=== PATIENT | male | born 1975 | race Two or more races ===

== ENCOUNTER 2022-04-30 17:30 | Inpatient (IN) | payer OTHER, SELFPAY ==
--- NOTE | ~2022-04-30 | XR_ITS ---
EXAMINATION: XR CHEST CLINICAL INFORMATION: Chest pain. COMPARISON: None TECHNIQUE: Frontal view of the chest was obtained. FINDINGS: No significant abnormality is noted involving the heart, lungs, mediastinum, bony thorax or soft tissues. XR/XR chest 1V IMPRESSION: No acute cardiopulmonary process.
[2022-04-30 17:38] VITALS: BP 151/91; BP 188/120; PULSE 91; PULSE 97; RESP 12; TEMP 37.2; O2SAT 92; O2SAT 94; BMI 30.7
--- NOTE | 2022-04-30 17:43 | ECG_ITS ---
Test Reason : cp Blood Pressure : / mmHG Vent. Rate : 090 BPM Atrial Rate : 090 BPM P-R Int : 138 ms QRS Dur : 078 ms QT Int : 378 ms P-R-T Axes : 032 047 018 degrees QTc Int : 462 ms Normal sinus rhythm Normal ECG No previous ECGs available Referred By: Kerry Guillen Electronically Signed By:LAWANDA PATTERSON MD
--- NOTE | 2022-04-30 17:45 | ED_ITS ---
HPI - Chest Pain General Chief Complaint: Chest Pain Stated Complaint: drug use Time Seen by Provider: 04/30/22 17:43 Source: patient and EMS Mode of arrival: EMS Limitations: no limitations History of Present Illness HPI narrative: 46 y/o male with history of asthma, HIV with undetectable viral load, hx IVDA on methadone 135 mg per day who recently relapsed with IV fentanyl 3 days ago presents to the ER via EMS with reports of chest pain that started 3 hours ago after using. He states the pain is across his entire chest, it is constant and nonradiating. He is not short of breath. He is not nauseous or diaphoretic. He reports migraine headache as well. He told his symptoms to a member of his sober house who encouraged him to call 911 to be evaluated and be seen by psychiatrist. Patient is on methadone and has been taking it daily. He relapsed with IV fentanyl 3 days ago after stressful event with his family. He has been using 1- 2 bags a day. He wants to stop using. He reports he no longer wants to live but has no plan to harm himself. He denies trying to harm himself today. MD complaint: chest pain Pertinent past history: asthma and other (IVDA) Onset (ago): hour(s) (3) Timing of current episode: constant Prior episodes: No Onset: associated with drug use Pain location: substernal, left chest and right chest Pain radiation: none Severity: moderate Quality: sharp Relieving factors: nothing Exacerbating factors: nothing Associated symptoms: other (headache) Treatment prior to arrival: none Risk Factors Coronary artery disease risk factors: none Thoracic aortic dissection risk factors: none Related Data Allergies Allergy/AdvReac Type Severity Reaction Status Date / Time Penicillins Allergy Rash Verified 04/30/22 18:36 Review of Systems Review of Systems: Constitutional: No Fever, No Chills ENT/Mouth: No sore throat, No Rhinorrhea, No Swallowing Difficulty Eyes: No Eye Pain, No Swelling, No Redness Cardiovascular: + Chest Pain, No SOB, No Orthopnea, No Edema Respiratory: No Cough, No Sputum, No Wheezing, No dyspnea Gastrointestinal: No Nausea, No Vomiting, No Diarrhea, No abdominal Pain Genitourinary: No Dysuria, No Urinary Frequency, No Hematuria Musculoskeletal: No joint pain, No Myalgias Skin: No Skin Lesions, No rash Neuro: No Weakness, No Numbness, No Dizziness, + Headache Psych: + Anxiety/Panic, +Depression, +SI, No HI, No AH, NO VH Heme/Lymph: No Bruising, No Lymphadenopathy Endocrine: No Polyuria, [facility] Social History Social History Alcohol intake: former Patient Tobacco Use Status: Current everyday Tobacco user Substance Use Type: IV Drugs Advance Directives: No Advance Directives Information Provided: No Physical Exam Vital Signs: Vital Signs: Last Vital Signs Temp 99 F 04/30/22 17:38 Pulse 97 04/30/22 18:34 Resp 18 04/30/22 18:34 BP 151/91 H 04/30/22 17:38 Pulse Ox 92 04/30/22 17:38 BMI result Body Mass Index 30.7 Appearance: Alert. Oriented X3. No acute distress. Eyes: Pupils pinpoint equal, round and reactive to light. ENT: Pharynx normal. Neck: Normal inspection. Neck supple. CVS: Normal heart rate and rhythm. Pulses normal. Respiratory: No respiratory distress. Breath sounds normal. Abdomen: Soft and nontender. +BS x4 Skin: Skin warm and dry. Normal skin color. Normal skin turgor. No rashes. Extremities: No lower extremity edema. Left forearm with track de la cruz. Neuro: Oriented X 3. No motor deficit. No sensory deficit. Course Course Course Narrative: 36-year-old male with a history of IVDA, HIV, asthma presents to the ER with chest pain for the last 3 hours and headache after using IV fentanyl. He relapsed 3 days ago. He is awake and alert. No need for Narcan. He is sinus on the monitor with heart rate 90 beats per minute, EKG, chest x-ray and lab workup is pending. Most likely drug related but will rule out ACS. Reevaluation(s) Reevaluation #1: Troponin is 3.5. EKG is normal, without ischemic changes. U tox still pending. Patient's snoring & easily arousable. Given his chest pain is less than 6 hours will repeat at 21:30. Will have assistant women's rowing coach and crisis team evaluate him once he is medically cleared. MDM - Chest Pain Medical Records Data Attestation: I reviewed the patient's medical records. Lab Data Attestation: I reviewed the patient's lab results. Result diagrams: 04/30/22 18:26 04/30/22 18:26 Labs: Lab Results 04/30/22 04/30/22 04/30/22 Range/Units 18:26 18:26 18:26 WBC 7.8 (4.8-10.8) X10*3/uL RBC 4.44 L (4.60-5.80) X10*6/uL Hgb 13.8 L (14.0-18.0) g/dl Hct 41.6 L (42.0-52.0) % MCV 93.7 (80.0-98.0) fL MCH 31.1 (27.0-33.0) pg MCHC 33.2 (31.0-36.0) g/dl RDW 12.5 (11.0-16.0) % Plt Count 206 (160-400) X10*3/uL MPV 10.1 (9.4-12.4) fL Immature Gran % (Auto) 0.3 (0.0-0.4) % Neut % (Auto) 64.2 (45-73) % Lymph % (Auto) 19.1 L (20-40) % [place] % (Auto) 14.6 H (2-11) % Eos % (Auto) 1.4 (0-4) % Baso % (Auto) 0.4 (0-2) % Lymph # (Auto) 1.5 (1.2-4.9) X10*3/uL [place] # (Auto) 1.1 (0.1-1.2) X10*3/uL Eos # (Auto) 0.1 (0.0-0.4) X10*3/uL Baso # (Auto) 0.0 (0.0-0.2) X10*3/uL Abs Immat Gran (auto) 0.02 (0.00-0.03) X10*3/uL Absolute Neuts (auto) 5.0 (2.0-8.3) x10*3/uL Absolute Nucleated RBC 0.000 (0.0-0.012) X10*3/uL Nucleated RBC % (auto) 0.0 (0.0-0.2) /100WBC Sodium 138 (135-145) mmol/L Potassium 4.3 (3.3-5.1) mmol/L Chloride 98 (96-108) mmol/L Carbon Dioxide 30 H (22-29) mmol/L Anion Gap 14 (12-20) BUN 16 (9-16) mg/dL Creatinine 1.04 (0.5-1.4) mg/dL Estim Creat Clear Calc 109.0 Estimated GFR > 60 Random Glucose 95 (60-115) mg/dL Calcium 9.4 (8.4-10.2) mg/dL Magnesium 2.4 (1.6-2.6) mg/dL Total Bilirubin 0.4 (0.0-1.0) mg/dL Direct Bilirubin 0.2 (0.0-0.5) mg/dL AST 46 H (5-37) U/L ALT 39 (0-40) U/L Alkaline Phosphatase 95 (39-117) U/L Troponin I High Sens 3.5 (<3.5-35.0) ng/L Total Protein 7.9 (6.5-8.0) g/dL Albumin 4.1 (3.5-5.0) g/dL Ethyl Alcohol mg/dL COVID-19 (BOB) (Negative) COVID-19 Clin Com 04/30/22 04/30/22 Range/Units 18:26 18:26 WBC (4.8-10.8) X10*3/uL RBC (4.60-5.80) X10*6/uL Hgb (14.0-18.0) g/dl Hct (42.0-52.0) % MCV (80.0-98.0) fL MCH (27.0-33.0) pg MCHC (31.0-36.0) g/dl RDW (11.0-16.0) % Plt Count (160-400) X10*3/uL MPV (9.4-12.4) fL Immature Gran % (Auto) (0.0-0.4) % Neut % (Auto) (45-73) % Lymph % (Auto) (20-40) % [place] % (Auto) (2-11) % Eos % (Auto) (0-4) % Baso % (Auto) (0-2) % Lymph # (Auto) (1.2-4.9) X10*3/uL [place] # (Auto) (0.1-1.2) X10*3/uL Eos # (Auto) (0.0-0.4) X10*3/uL Baso # (Auto) (0.0-0.2) X10*3/uL Abs Immat Gran (auto) (0.00-0.03) X10*3/uL Absolute Neuts (auto) (2.0-8.3) x10*3/uL Absolute Nucleated RBC (0.0-0.012) X10*3/uL Nucleated RBC % (auto) (0.0-0.2) /100WBC Sodium (135-145) mmol/L Potassium (3.3-5.1) mmol/L Chloride (96-108) mmol/L Carbon Dioxide (22-29) mmol/L Anion Gap (12-20) BUN (9-16) mg/dL Creatinine (0.5-1.4) mg/dL Estim Creat Clear Calc Estimated GFR Random Glucose (60-115) mg/dL Calcium (8.4-10.2) mg/dL Magnesium (1.6-2.6) mg/dL Total Bilirubin (0.0-1.0) mg/dL Direct Bilirubin (0.0-0.5) mg/dL AST (5-37) U/L ALT (0-40) U/L Alkaline Phosphatase (39-117) U/L Troponin I High Sens (<3.5-35.0) ng/L Total Protein (6.5-8.0) g/dL Albumin (3.5-5.0) g/dL Ethyl Alcohol < 10 mg/dL COVID-19 (BOB) Negative (Negative) COVID-19 Clin Com See Note ECG Data ECG #1: Attestation: I personally reviewed and interpreted this ECG as follows: ECG interpretation date: 04/30/22 ECG interpretation time: 18:01 Prior ECG tracings: not available for review Interpretation: Normal sinus rhythm, ventricular rate 90 beats per minute, normal IN interval, no ST segment elevations or depressions. Discharge Plan Discharge Clinical Impression: Opioid use disorder, Depression Patient Disposition: Still a Patient
[2022-04-30 18:32] LABS: Basophils Percent Auto 0.4 % (0-2); Eosinophils Absolute Auto 0.1 X10*3/uL (0.0-0.4); Eosinophils Percent Auto 1.4 % (0-4); Hematocrit 41.6 % (42.0-52.0); Hemoglobin 13.8 g/dl (14.0-18.0); Imm Gran Abs Auto 0.02 X10*3/uL (0.00-0.03); Imm Gran Pct Auto 0.3 % (0.0-0.4); Lymphocytes Absolute Auto 1.5 X10*3/uL (1.2-4.9); Lymphocytes Percent Auto 19.1 % (20-40); MANUAL DIFF FLAG NO; Mean Corpuscular HGB Conc 33.2 g/dl (31.0-36.0); Mean Corpuscular Hemoglobin 31.1 pg (27.0-33.0); Mean Corpuscular Volume 93.7 fL (80.0-98.0); Mean Platelet Volume 10.1 fL (9.4-12.4); Monocytes Absolute Auto 1.1 X10*3/uL (0.1-1.2); Monocytes Percent Auto 14.6 % (2-11); Neutrophils Percent Auto 64.2 % (45-73); Platelet Count 206 X10*3/uL (160-400); Red Blood Count 4.44 X10*6/uL (4.60-5.80); Red Cell Distribution Width 12.5 % (11.0-16.0); White Blood Count 7.8 X10*3/uL (4.8-10.8)
[2022-04-30 18:34] VITALS: PULSE 97; RESP 18
[2022-04-30] MEDS: Ibuprofen 600 MG TABLET PO (18:36)
[2022-04-30 18:50] LABS: Ethanol < 10 mg/dL
[2022-04-30 18:51] LABS: COVID-19 Test Negative (Negative); IDNOW Serial# 16C4AD1C
[2022-04-30 18:53] LABS: Alanine Aminotransferase 39 U/L (0-40); Albumin Level 4.1 g/dL (3.5-5.0); Alkaline Phosphatase 95 U/L (39-117); Anion Gap 14 (12-20); Aspartate Amino Transferase 46 U/L (5-37); Bilirubin Direct 0.2 mg/dL (0.0-0.5); Bilirubin Total 0.4 mg/dL (0.0-1.0); Blood Urea Nitrogen 16 mg/dL (9-16); Calcium 9.4 mg/dL (8.4-10.2); Carbon Dioxide 30 mmol/L (22-29); Chloride 98 mmol/L (96-108); Estimated Glomerular Filt Rate > 60; Glucose Random 95 mg/dL (60-115); Magnesium 2.4 mg/dL (1.6-2.6); Potassium 4.3 mmol/L (3.3-5.1); Sodium 138 mmol/L (135-145); Total Protein 7.9 g/dL (6.5-8.0)
[2022-04-30 19:00] LABS: Troponin-I High Sensitivity 3.5 ng/L (<3.5-35.0)
[2022-04-30 22:16] LABS: Troponin-I High Sensitivity 3.6 ng/L (<3.5-35.0)
[2022-04-30 22:19] VITALS: BP 128/87; PULSE 72; RESP 12; TEMP 36.9; O2SAT 95
[2022-05-01] VITALS: BP 142/89; PULSE 65; RESP 12; TEMP 36.9; O2SAT 95
--- NOTE | 2022-05-01 00:02 | PC.NURSE ---
pt educated of need for urine sample, given urinal, advised to push call carpenter when he is able to provide sample
[2022-05-01 02:17] VITALS: BP 115/88; PULSE 65; RESP 12; O2SAT 96
[2022-05-01 05:25] VITALS: PULSE 65; RESP 14; O2SAT 96
[2022-05-01 06:03] VITALS: PULSE 68
--- NOTE | 2022-05-01 09:30 | PC.NURSE ---
patient evaluated by N, plan for inpatient bed search.
[2022-05-01 10:36] LABS: Appearance Urine HAZY; Color Urine YELLOW; Glucose Urine UA NEG (NEG); Leukocyte Esterase Urine NEG (NEG); Nitrite Urine NEG (NEG); Specific Gravity - Urine >= 1.030 (1.005-1.025); Urine Blood NEG (NEG); Urine Ketones NEG (NEG); Urine Protein TRACE MG/DL (NEG-TRACE)
[2022-05-01 10:55] LABS: Amphetamine Screen Urine Not Detected (Not Detect); Barbiturates, Urine Not Detected (Not Detect); Benzodiazepines Screen Urine Not Detected (Not Detect); Cannabinoid Screen Urine POSITIVE (Not Detect); Cocaine Screen Urine POSITIVE (Not Detect); Fentanyl, urine POSITIVE (Not Detect); Opiate Screen Urine POSITIVE (Not Detect); Phencyclidine Screen Urine Not Detected (Not Detect)
[2022-05-01] MEDS: methADONE HCl 20 MG/2 ML ORAL.CONC 135 MG PO (11:23)
[2022-05-01] MEDS: Sertraline HCL 50 MG TABLET 150 MG PO (16:17)
[2022-05-01] MEDS: Gabapentin 400 MG CAPSULE 800 MG PO ×2 (16:18→19:40)
[2022-05-01] MEDS: OLANZapine 2.5 MG TABLET PO (19:40)
[2022-05-01] MEDS: cloNIDine HCL 0.1 MG TABLET PO (19:40)
[2022-05-01] MEDS: levETIRAcetam 500 MG TABLET PO (19:40)
[2022-05-01] MEDS: Prazosin HCL 1 MG CAPSULE PO (19:40)
[2022-05-02 06:00] VITALS: BP 148/91; PULSE 75; RESP 18; TEMP 36.2; O2SAT 96
[2022-05-02] MEDS: methADONE HCl 20 MG/2 ML ORAL.CONC 135 MG PO (08:32)
[2022-05-02] MEDS: Gabapentin 400 MG CAPSULE 800 MG PO ×3 (08:39→20:51)
[2022-05-02] MEDS: buPROPion HCl XL 150 MG TAB.ER.24H PO (08:39)
[2022-05-02] MEDS: levETIRAcetam 500 MG TABLET PO ×2 (08:39→20:52)
[2022-05-02] MEDS: Prazosin HCL 1 MG CAPSULE 2 MG PO ×2 (08:40→20:52)
[2022-05-02] MEDS: OLANZapine 2.5 MG TABLET PO (08:40)
[2022-05-02] MEDS: Sertraline HCL 50 MG TABLET 150 MG PO (08:41)
[2022-05-02 09:19] LABS: Alanine Aminotransferase 31 U/L (0-40); Albumin Level 3.4 g/dL (3.5-5.0); Alkaline Phosphatase 81 U/L (39-117); Anion Gap 11 (12-20); Aspartate Amino Transferase 29 U/L (5-37); Bilirubin Total 0.3 mg/dL (0.0-1.0); Blood Urea Nitrogen 10 mg/dL (9-16); Calcium 8.4 mg/dL (8.4-10.2); Carbon Dioxide 32 mmol/L (22-29); Chloride 100 mmol/L (96-108); Cholesterol 160 mg/dL; Creatinine Clr Calc Pharmacy 149.2; Estimated Glomerular Filt Rate > 60; Glucose Fasting 89 mg/dL (60-99); HDL Cholesterol 49 mg/dL; LDL Cholesterol Calculated 94 mg/dl; Potassium 4.5 mmol/L (3.3-5.1); Sodium 138 mmol/L (135-145); Total Protein 6.6 g/dL (6.5-8.0); Triglycerides 89 mg/dL
--- NOTE | 2022-05-02 10:45 | HO.PSYADMNOT ---
HPI Date of Service: 05/02/22 Chief Complaint: depression Sources of Information: patient interviewed, chart reviewed and crisis/core team assessment reviewed HPI Subjective Notes: Torres Warning and Conditional Voluntary Healthcare Proxy: No Guardianship: No Medical Problems Affecting Mental Status: No Narrative: 46yo male, history of recurrent major depression with psychosis and opiate use disorder, currently on Methadone, presents with reports of an increase in depression with command auditory hallucinations telling him to suicide with a plan to hang himself. He reports an attempt to hang himself in 2020 and was found before he acted. He reports relapse over the past 72 hours and non-compliance with medications. Reports he is from the [facility] and had been on probation for substance use. When he relapsed, his front desk officer had him incarcerated for ~4 months, and talked with him about leaving [place] as he had too many connections threatening his sobriety. He left incarceration and [facility], [facility] recently and was placed after graduation in a sober home is [facility] where he has been for 30 days. Since his admission, he has found that his peers are selling drugs, using drugs and this helped to precipitate his relapse, along with an argument with his family in [place]. He reports he needs help finding a safer program for himself. Past Psychiatric History: IP: 2020, hx of approximately 12 admissions OP: [facility] Medical Evaluation Reviewed: Yes PMFSH Family History: Born and raised in [place]. To [facility] at age 23 One daughter Two brothers who are younger. Social History: [facility]. Recently completed [employer] program Substance History: Cannabis-age 14 on Fentanyl-using x 3 days. Believes he began using this substance around age 19. Trauma History: Affirms Diagnostics Vital Signs (24Hr): Vital Signs - 24 hr 05/02/22 06:00 Temperature 97.2 F Pulse Rate 75 Respiratory Rate 18 Blood Pressure 148/91 H Pulse Oximetry 96 BMI result Body Mass Index 30.7 Labs Results: 04/30/22 18:26 05/02/22 08:09 Labs: Laboratory Results - last 48 hr 04/30/22 04/30/22 04/30/22 18:26 18:26 18:26 WBC 7.8 RBC 4.44 L Hgb 13.8 L Hct 41.6 L MCV 93.7 MCH 31.1 MCHC 33.2 RDW 12.5 Plt Count 206 MPV 10.1 Immature Gran % (Auto) 0.3 Neut % (Auto) 64.2 Lymph % (Auto) 19.[address] % (Auto) 14.6 H Eos % (Auto) 1.4 Baso % (Auto) 0.4 Lymph # (Auto) 1.5 [place] # (Auto) 1.1 Eos # (Auto) 0.1 Baso # (Auto) 0.0 Abs Immat Gran (auto) 0.02 Absolute Neuts (auto) 5.0 Absolute Nucleated RBC 0.000 Nucleated RBC % (auto) 0.0 Sodium 138 Potassium 4.3 Chloride 98 Carbon Dioxide 30 H Anion Gap 14 BUN 16 Creatinine 1.04 Estim Creat Clear Calc 109.0 Estimated GFR > 60 Random Glucose 95 Fasting Glucose Calcium 9.4 Magnesium 2.4 Total Bilirubin 0.4 Direct Bilirubin 0.2 AST 46 H ALT 39 Alkaline Phosphatase 95 Troponin I High Sens 3.5 Total Protein 7.9 Albumin 4.1 Triglycerides Cholesterol LDL Cholesterol, Calc HDL Cholesterol Urine Color Urine Appearance Urine pH Ur Specific [place] Urine Protein Urine Glucose (UA) Urine Ketones Urine Blood Urine Nitrite Ur Leukocyte Esterase Urine Opiates Screen Urine Fentanyl Screen Ur Barbiturates Screen Ur Phencyclidine Scrn Ur Amphetamines Screen U Benzodiazepines Scrn Urine Cocaine Screen U Marijuana (THC) Screen Ethyl Alcohol COVID-19 (BOB) COVID-19 Clin Com 04/30/22 04/30/22 04/30/22 18:26 18:26 21:47 WBC RBC Hgb Hct MCV MCH MCHC RDW Plt Count MPV Immature Gran % (Auto) Neut % (Auto) Lymph % (Auto) [place] % (Auto) Eos % (Auto) Baso % (Auto) Lymph # (Auto) [place] # (Auto) Eos # (Auto) Baso # (Auto) Abs Immat Gran (auto) Absolute Neuts (auto) Absolute Nucleated RBC Nucleated RBC % (auto) Sodium Potassium Chloride Carbon Dioxide Anion Gap BUN Creatinine Estim Creat Clear Calc Estimated GFR Random Glucose Fasting Glucose Calcium Magnesium Total Bilirubin Direct Bilirubin AST ALT Alkaline Phosphatase Troponin I High Sens 3.6 Total Protein Albumin Triglycerides Cholesterol LDL Cholesterol, Calc HDL Cholesterol Urine Color Urine Appearance Urine pH Ur Specific [place] Urine Protein Urine Glucose (UA) Urine Ketones Urine Blood Urine Nitrite Ur Leukocyte Esterase Urine Opiates Screen Urine Fentanyl Screen Ur Barbiturates Screen Ur Phencyclidine Scrn Ur Amphetamines Screen U Benzodiazepines Scrn Urine Cocaine Screen U Marijuana (THC) Screen Ethyl Alcohol < 10 COVID-19 (BOB) Negative COVID-19 Clin Com See Note 05/01/22 05/01/22 05/02/22 10:25 10:25 08:09 WBC RBC Hgb Hct MCV MCH MCHC RDW Plt Count MPV Immature Gran % (Auto) Neut % (Auto) Lymph % (Auto) [place] % (Auto) Eos % (Auto) Baso % (Auto) Lymph # (Auto) [place] # (Auto) Eos # (Auto) Baso # (Auto) Abs Immat Gran (auto) Absolute Neuts (auto) Absolute Nucleated RBC Nucleated RBC % (auto) Sodium 138 Potassium 4.5 Chloride 100 Carbon Dioxide 32 H Anion Gap 11 L BUN 10 Creatinine 0.76 Estim Creat Clear Calc 149.2 Estimated GFR > 60 Random Glucose Fasting Glucose 89 Calcium 8.4 D Magnesium Total Bilirubin 0.3 Direct Bilirubin AST 29 ALT 31 Alkaline Phosphatase 81 Troponin I High Sens Total Protein 6.6 Albumin 3.4 L Triglycerides 89 Cholesterol 160 LDL Cholesterol, Calc 94 HDL Cholesterol 49 Urine Color YELLOW Urine Appearance HAZY Urine pH 6.0 Ur Specific [place] >= 1.030 H Urine Protein TRACE Urine Glucose (UA) NEG Urine Ketones NEG Urine Blood NEG Urine Nitrite NEG Ur Leukocyte Esterase NEG Urine Opiates Screen POSITIVE H Urine Fentanyl Screen POSITIVE H Ur Barbiturates Screen Not Detected Ur Phencyclidine Scrn Not Detected Ur Amphetamines Screen Not Detected U Benzodiazepines Scrn Not Detected Urine Cocaine Screen POSITIVE H U Marijuana (THC) Screen POSITIVE H Ethyl Alcohol COVID-19 (BOB) COVID-19 Clin Com Imaging Radiology Impressions: ITS Impressions Chest X-Ray 04/30/22 17:52 IMPRESSION: No acute cardiopulmonary process. Meds/Allergies Meds Home Medications Medication Instructions Recorded Confirmed Type bupropion HCl 150 mg 24 hr tablet, 1 tab PO QAM 05/01/22 05/01/22 History extended release (Wellbutrin XL) clonidine HCl 0.1 mg tablet 1 tab PO BID PRN 05/01/22 05/01/22 History gabapentin 800 mg tablet 1 tab PO TID 05/01/22 05/01/22 History levetiracetam 500 mg tablet 1 tab PO BID 05/01/22 05/01/22 History lumateperone 42 mg capsule 1 cap PO BEDTIME 05/01/22 05/01/22 History (Caplyta) methadone 10 mg/mL oral syringe 135 mg PO DAILY 05/01/22 05/01/22 History (FOR ORAL USE ONLY) olanzapine 5 mg tablet 2.5 mg PO BID 05/01/22 05/01/22 History prazosin 1 mg capsule 1 mg PO BEDTIME 05/01/22 05/01/22 History prazosin 2 mg capsule 1 cap PO BID 05/01/22 05/01/22 History sertraline 100 mg tablet (Zoloft) 1.5 tab PO DAILY 05/01/22 05/01/22 History sofosbuvir 400 mg-velpatasvir 100 1 tab PO DAILY 05/01/22 05/01/22 History mg tablet Allergies Allergies Allergy/AdvReac Type Severity Reaction Status Date / Time Penicillins Allergy Rash Verified 04/30/22 18:36 Mental Status Exam Mental Status Exam Patient Appearance: Appropriate Patient Orientation: Person, Place, Time and Situation Level of Consciousness: Alert Patient Behavior: Appropriate, Talkative, Cooperative and Good Eye Contact Mood Description: Depressed Affect Description: Flat Patient Cognition Impaired: No Ability to Follow Directions: Good Speech Pattern: Spontaneous Speech Memory Description: Intact Hallucinations: Auditory Perceptual Disturbances: Depersonalization and Derealization Thought Process: Distracted and Rumination Thought Content: positive for Suicidal Ideation Depressive Symptoms: Increased Anxiety, Difficulty Sleeping, Changes in Appetite and Thoughts of /Suicide Judgement: Fair Assessment & Plan Assessment & Plan (1) Severe recurrent major depression w/psychotic features, mood-congruent: Status: Acute Code(s): F33.3 - Major depressive disorder, recurrent, severe with psychotic symptoms (2) Opioid use disorder: Status: Acute Code(s): F11.90 - Opioid use, unspecified, uncomplicated Plan 46 yo male, hx of recurrent major depression with psychosis, opiate use disorder, currently on Methadone. Recent completion [facility] with [facility] program where he found that peers were selling drugs, using drugs and not living in a sober environment. This, along with an argument with his family in [place] precipitated a relapse, increase in command voices to hang himself. Plan: Medications reconciled with [facility]. Continue current regime TSH B12 Folate A1C Patient educated on: medication risk/benefits, substance abuse and therapeutic strategies Informed Consent: understands and further education needed Reason for continued inpatient stay Substantial Risk for: harm to self, inability to function and rapid decompensation
[2022-05-02] MEDS: cloNIDine HCL 0.1 MG TABLET PO (13:47)
[2022-05-02] MEDS: hydrOXYzine HCL 25 MG TABLET PO (13:48)
[2022-05-02 18:00] VITALS: BP 130/80; PULSE 95; RESP 18; TEMP 36.1; O2SAT 97
[2022-05-02] MEDS: OLANZapine 5 MG TABLET PO (20:52)
[2022-05-02] MEDS: Prazosin HCL 1 MG CAPSULE 3 MG PO (20:53)
[2022-05-03 06:00] VITALS: BP 140/75; PULSE 106; RESP 20; TEMP 36.9; O2SAT 97
[2022-05-03] MEDS: levETIRAcetam 500 MG TABLET PO ×2 (08:21→19:39)
[2022-05-03] MEDS: Sertraline HCL 50 MG TABLET 150 MG PO (08:21)
[2022-05-03] MEDS: Prazosin HCL 1 MG CAPSULE 2 MG PO ×2 (08:21→19:40)
[2022-05-03] MEDS: OLANZapine 5 MG TABLET PO ×2 (08:21→19:39)
[2022-05-03] MEDS: methADONE HCl 20 MG/2 ML ORAL.CONC 135 MG PO (08:21)
[2022-05-03] MEDS: buPROPion HCl XL 150 MG TAB.ER.24H PO ×2 (08:21→12:57)
[2022-05-03] MEDS: Gabapentin 400 MG CAPSULE 800 MG PO ×3 (08:21→19:39)
[2022-05-03] MEDS: Multivitamin TABLET 1 TAB PO (08:22)
[2022-05-03 08:31] LABS: Estimated Average Glucose 105 mg/dL; Hemoglobin A1c % 5.3 %
[2022-05-03 08:52] LABS: Thyroid Stimulating Hormone 1.48 uIU/mL (0.32-4.0)
[2022-05-03 10:12] LABS: Folate 10.6 ng/mL (> or = 4.0); Vitamin B12 458 pg/mL (200-900)
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
[2022-05-03 18:15] VITALS: BP 141/83; PULSE 83; TEMP 36.9; O2SAT 95
[2022-05-03] MEDS: risperiDONE 0.5 MG TABLET PO (19:39)
[2022-05-03] MEDS: Prazosin HCL 1 MG CAPSULE 4 MG PO (19:39)
[2022-05-04] MEDS: buPROPion HCl XL 150 MG TAB.ER.24H PO ×2 (08:02→12:02)
[2022-05-04] MEDS: Sertraline HCL 50 MG TABLET 150 MG PO (08:02)
[2022-05-04] MEDS: Bictegrav/Emtricit/Tenofov Ala TABLET 1 TAB PO (08:02)
[2022-05-04] MEDS: Prazosin HCL 1 MG CAPSULE 2 MG PO ×2 (08:03→20:00)
[2022-05-04] MEDS: Multivitamin TABLET 1 TAB PO (08:03)
[2022-05-04] MEDS: OLANZapine 5 MG TABLET PO (08:03)
[2022-05-04] MEDS: levETIRAcetam 500 MG TABLET PO ×2 (08:03→19:59)
[2022-05-04] MEDS: Gabapentin 400 MG CAPSULE 800 MG PO ×3 (08:03→20:00)
[2022-05-04] MEDS: methADONE HCl 20 MG/2 ML ORAL.CONC 135 MG PO (08:03)
[2022-05-04 08:06] VITALS: BP 133/87; PULSE 88; RESP 18; TEMP 36.4; O2SAT 97
[2022-05-04] MEDS: Acetaminophen 325 MG TABLET 650 MG PO (12:02)
[2022-05-04] MEDS: cloNIDine HCL 0.1 MG TABLET PO (14:12)
--- NOTE | 2022-05-04 17:08 | P.PNPSI_ITS ---
Subjective Subjective Date of Service: 05/04/22 Reason For Visit: depression Subjective Notes: Conditional Voluntary Healthcare Proxy: No Guardianship: No Medical Problems Affecting Mental Status: No Interim History: Reports an increase in voices and ongoing poor sleep as he has a room-mate who has a one to one and there is not a quiet night environment. Discussion of efficacy of recent increase of prazosin and addition of HS Risperdal. He reports not much assist with these interventions. Discussed titration of Olanzapine. Medication Compliance: Yes Side effects from medications: No Attending Groups: Intermittent Review of Systems Acute medical concerns: No Medical Review of Systems: unchanged Review of Systems Psychiatric: Reports abnormal sleep pattern (vivid nightmares) and Reports suicidal ideation (denies) Mental Status Exam Mental Status Exam Patient Appearance: Appropriate Patient Orientation: Person, Place, Time and Situation Level of Consciousness: Alert Patient Behavior: Appropriate, Talkative, Cooperative and Good Eye Contact Mood Description: Depressed Affect Description: Flat Patient Cognition Impaired: No Ability to Follow Directions: Good Speech Pattern: Spontaneous Speech Memory Description: Intact Hallucinations: Auditory Perceptual Disturbances: Depersonalization and Derealization Thought Process: Distracted and Rumination Thought Content: positive for Suicidal Ideation Depressive Symptoms: Increased Anxiety, Difficulty Sleeping, Changes in Appetite and Thoughts of /Suicide Judgement: Fair Diagnostics Vital Signs (24Hr): Vital Signs - 24 hr 05/03/22 18:15 05/04/22 08:06 Temperature 98.4 F 97.6 F Pulse Rate 83 88 Respiratory Rate 18 Blood Pressure 141/83 H 133/87 Pulse Oximetry 95 97 BMI result Body Mass Index 30.7 Labs Results: 04/30/22 18:26 05/02/22 08:09 Labs: Laboratory Results - last 48 hr 05/03/22 05/03/22 05/03/22 08:00 08:00 08:00 Estimat Average Glucose 105 Hemoglobin A1c % 5.3 Vitamin B12 458 Folate 10.6 TSH 1.48 Imaging Radiology Impressions: ITS Impressions Chest X-Ray 04/30/22 17:52 IMPRESSION: No acute cardiopulmonary process. Medications Medications Current Medications Acetaminophen (Acetaminophen 325 Mg Tablet) 650 mg PO Q6H PRN PRN Reason: Headache/Pain Mild Scale (1-3) Last Admin: 05/04/22 12:02 Dose: 650 mg Documented by: Al Hydroxide/Mg Hydroxide (Magnesium Hydrox/Alum Hydrox 30 Ml Oral.Susp) 30 ml PO Q6H PRN PRN Reason: Heartburn/Nausea Bictegravir/Emtricitabine/Tenofovir (Bictegrav/Emtricit/Tenofov Ala Tablet) 1 tab PO DAILY [facility] Last Admin: 05/04/22 08:02 Dose: 1 tab Documented by: Bupropion HCl (Bupropion Hcl Xl 150 Mg Tab.Er.24h) 150 mg PO 0900,1300 [facility] Last Admin: 05/04/22 12:02 Dose: 150 mg Documented by: Clonidine HCl (Clonidine Hcl 0.1 Mg Tablet) 0.1 mg PO BID PRN; Protocol PRN Reason: anxiety Last Admin: 05/04/22 14:12 Dose: 0.1 mg Documented by: Gabapentin (Gabapentin 400 Mg Capsule) 800 mg PO TID [facility] Last Admin: 05/04/22 14:09 Dose: 800 mg Documented by: Hydroxyzine HCl (Hydroxyzine Hcl 25 Mg Tablet) 25 mg PO BEDTIME PRN PRN Reason: Anxiety Last Admin: 05/02/22 13:48 Dose: 25 mg Documented by: Levetiracetam (Levetiracetam 500 Mg Tablet) 500 mg PO BID [facility] Last Admin: 05/04/22 08:03 Dose: 500 mg Documented by: Magnesium Hydroxide (Milk Of Magnesia 30 Ml Oral.Susp) 30 ml PO DAILY PRN PRN Reason: Constipation Methadone HCl (Methadone Hcl 20 Mg/2 Ml Oral.Conc) 135 mg PO DAILY [facility] Last Admin: 05/04/22 08:03 Dose: 135 mg Documented by: Multivitamins/Vitamin C (Multivitamin Tablet) 1 tab PO DAILY [facility] Last Admin: 05/04/22 08:03 Dose: 1 tab Documented by: Nicotine (Nicotine 21 Mg Patch.Td24) 21 mg TRANSDERMA DAILY [facility] Last Admin: 05/04/22 08:05 Dose: Not Given Documented by: Non-Formulary Medication (Lumateperone [Caplyta]) 1 cap PO BEDTIME [facility] Non-Formulary Medication (Sofosbuvir-Velpatasvir) 1 tab PO DAILY [facility] Olanzapine (Olanzapine 5 Mg Tablet) 5 mg PO DAILY [facility] Olanzapine (Olanzapine 10 Mg Tablet) 10 mg PO BEDTIME [facility] Prazosin HCl (Prazosin Hcl 1 Mg Capsule) 2 mg PO BID [facility]; Protocol Last Admin: 05/04/22 08:03 Dose: 2 mg Documented by: Prazosin HCl (Prazosin Hcl 1 Mg Capsule) 4 mg PO BEDTIME [facility]; Protocol Last Admin: 05/03/22 19:39 Dose: 4 mg Documented by: Sertraline HCl (Sertraline Hcl 50 Mg Tablet) 150 mg PO DAILY [facility] Last Admin: 05/04/22 08:02 Dose: 150 mg Documented by: Sumatriptan Succinate (Sumatriptan Succinate 50 Mg Tablet) 50 mg PO DAILY MRX1 PRN PRN Reason: Migraine Headache Trazodone HCl (Trazodone Hcl 50 Mg Tablet) 50 mg PO BEDTIME PRN PRN Reason: Insomnia Allergies Allergies Allergy/AdvReac Type Severity Reaction Status Date / Time Penicillins Allergy Rash Verified 04/30/22 18:36 Assessment & Plan Assessment & Plan (1) Severe recurrent major depression w/psychotic features, mood-congruent: Status: Acute Code(s): F33.3 - Major depressive disorder, recurrent, severe with psychotic symptoms (2) Opioid use disorder: Status: Acute Code(s): F11.90 - Opioid use, unspecified, uncomplicated Plan 46 yo male, hx of recurrent major depression with psychosis, opiate use disorder, currently on Methadone. Recent completion of [facility] program with transfer to [facility] sober living program where he found that peers were selling drugs, using drugs and not living in a sober environment. This, along with an argument with his family in [place] precipitated a relapse, increase in command voices to hang himself. Plan: Medications reconciled with [facility]. Continue current regime TSH B12 Folate A1C 05/03/22: Increase HS Prazosin to 4 mg Risperdal 0.5 mg HS Discharge planning. 05/04/22 Discontinue Risperdal Increase Olanzapine to 10 mg at HS I spent minutes with the patient and/or on the patient floor today, greater than?50% of which was spent counseling/coordinating care. Patient educated on: medication risk/benefits Informed Consent: understands and further education needed Reason for contiued inpatient stay Substantial Risk for: harm to self, inability to function and rapid decompensation
[2022-05-04 19:55] VITALS: BP 130/67; PULSE 74; TEMP 36.9; O2SAT 97
[2022-05-04] MEDS: OLANZapine 10 MG TABLET PO (19:59)
[2022-05-04] MEDS: Prazosin HCL 1 MG CAPSULE 4 MG PO (20:00)
[2022-05-05] MEDS: Multivitamin TABLET 1 TAB PO (08:09)
[2022-05-05] MEDS: Prazosin HCL 1 MG CAPSULE 2 MG PO ×2 (08:09→19:52)
[2022-05-05] MEDS: OLANZapine 5 MG TABLET PO (08:09)
[2022-05-05] MEDS: methADONE HCl 20 MG/2 ML ORAL.CONC 135 MG PO (08:09)
[2022-05-05] MEDS: Sertraline HCL 50 MG TABLET 150 MG PO (08:09)
[2022-05-05] MEDS: buPROPion HCl XL 150 MG TAB.ER.24H PO ×2 (08:09→12:04)
[2022-05-05] MEDS: Bictegrav/Emtricit/Tenofov Ala TABLET 1 TAB PO (08:09)
[2022-05-05] MEDS: levETIRAcetam 500 MG TABLET PO ×2 (08:09→19:52)
[2022-05-05] MEDS: Gabapentin 400 MG CAPSULE 800 MG PO ×3 (08:09→19:53)
[2022-05-05 08:12] VITALS: BP 146/84; PULSE 96; RESP 18; TEMP 36.8; O2SAT 97
--- NOTE | 2022-05-05 13:39 | MHC.RECOVSUP ---
? Reason for consult:Recovery Support o Current location:[facility] o Identified substance use concern:Heroine - Seeking ATS (detox) - Support ? Intervention: o MAT started or to be started o Community resources provided o Harm reduction discussion ? Plan: o Bed search in progress to o Patient to follow up with [facility] after discharge ? Additional information:Patient seeking a acid recovery operator, referred patient to Laurie Bedoya the acid recovery [email or web address]
[2022-05-05 18:00] VITALS: BP 140/80; PULSE 85; RESP 14; TEMP 36.6
--- NOTE | 2022-05-05 18:03 | P.PNPSI_ITS ---
Subjective Subjective Date of Service: 05/05/22 Reason For Visit: depression Subjective Notes: Conditional Voluntary Healthcare Proxy: No Guardianship: No Medical Problems Affecting Mental Status: No Interim History: Connor continues to report voices, anxiety, depression. Discussed and reviewed regime. Continue Olanzapine titration. Medication Compliance: Yes Side effects from medications: No Attending Groups: Intermittent Review of Systems Acute medical concerns: No Medical Review of Systems: unchanged Review of Systems Psychiatric: Reports abnormal sleep pattern (vivid nightmares), Reports anxiety, Reports depression, Reports auditory hallucinations and Reports suicidal ideatio n (denies) Mental Status Exam Mental Status Exam Patient Appearance: Appropriate Patient Orientation: Person, Place, Time and Situation Level of Consciousness: Alert Patient Behavior: Appropriate, Talkative, Cooperative and Good Eye Contact Mood Description: Depressed and Anxious Affect Description: Flat Patient Cognition Impaired: No Ability to Follow Directions: Good Speech Pattern: Spontaneous Speech Memory Description: Intact Hallucinations: Auditory Delusions: Paranoid Ideation Perceptual Disturbances: Depersonalization and Derealization Thought Process: Distracted and Rumination Thought Content: positive for Suicidal Ideation (reports feeling safe on the unit today) Depressive Symptoms: Increased Anxiety, Difficulty Sleeping, Changes in Appetite and Thoughts of /Suicide Judgement: Fair Diagnostics Vital Signs (24Hr): Vital Signs - 24 hr 05/04/22 19:55 05/05/22 08:12 Temperature 98.5 F 98.2 F Pulse Rate 74 96 Respiratory Rate 18 Blood Pressure 130/67 146/84 H Pulse Oximetry 97 97 Oxygen Delivery Method Room Air BMI result Body Mass Index 30.7 Labs Results: 04/30/22 18:26 05/02/22 08:09 Imaging Radiology Impressions: ITS Impressions Chest X-Ray 04/30/22 17:52 IMPRESSION: No acute cardiopulmonary process. Medications Medications Current Medications Acetaminophen (Acetaminophen 325 Mg Tablet) 650 mg PO Q6H PRN PRN Reason: Headache/Pain Mild Scale (1-3) Last Admin: 05/04/22 12:02 Dose: 650 mg Al Hydroxide/Mg Hydroxide (Magnesium Hydrox/Alum Hydrox 30 Ml Oral.Susp) 30 ml PO Q6H PRN PRN Reason: Heartburn/Nausea Bictegravir/Emtricitabine/Tenofovir (Bictegrav/Emtricit/Tenofov Ala Tablet) 1 tab PO DAILY [facility] Last Admin: 05/05/22 08:09 Dose: 1 tab Bupropion HCl (Bupropion Hcl Xl 150 Mg Tab.Er.24h) 150 mg PO 0900,1300 [facility] Last Admin: 05/05/22 12:04 Dose: 150 mg Clonidine HCl (Clonidine Hcl 0.1 Mg Tablet) 0.1 mg PO BID PRN; Protocol PRN Reason: anxiety Last Admin: 05/04/22 14:12 Dose: 0.1 mg Gabapentin (Gabapentin 400 Mg Capsule) 800 mg PO TID [facility] Last Admin: 05/05/22 14:45 Dose: 800 mg Hydroxyzine HCl (Hydroxyzine Hcl 25 Mg Tablet) 25 mg PO BEDTIME PRN PRN Reason: Anxiety Last Admin: 05/02/22 13:48 Dose: 25 mg Levetiracetam (Levetiracetam 500 Mg Tablet) 500 mg PO BID [facility] Last Admin: 05/05/22 08:09 Dose: 500 mg Magnesium Hydroxide (Milk Of Magnesia 30 Ml Oral.Susp) 30 ml PO DAILY PRN PRN Reason: Constipation Methadone HCl (Methadone Hcl 20 Mg/2 Ml Oral.Conc) 135 mg PO DAILY [facility] Last Admin: 05/05/22 08:09 Dose: 135 mg Multivitamins/Vitamin C (Multivitamin Tablet) 1 tab PO DAILY [facility] Last Admin: 05/05/22 08:09 Dose: 1 tab Nicotine (Nicotine 21 Mg Patch.Td24) 21 mg TRANSDERMA DAILY [facility] Last Admin: 05/05/22 08:11 Dose: Not Given Non-Formulary Medication (Lumateperone [Caplyta]) 1 cap PO BEDTIME [facility] Non-Formulary Medication (Sofosbuvir-Velpatasvir) 1 tab PO DAILY [facility] Olanzapine (Olanzapine 5 Mg Tablet) 5 mg PO DAILY [facility] Last Admin: 05/05/22 08:09 Dose: 5 mg Olanzapine (Olanzapine 10 Mg Tablet) 10 mg PO BEDTIME [facility] Last Admin: 05/04/22 19:59 Dose: 10 mg Prazosin HCl (Prazosin Hcl 1 Mg Capsule) 2 mg PO BID [facility]; Protocol Last Admin: 05/05/22 08:09 Dose: 2 mg Prazosin HCl (Prazosin Hcl 1 Mg Capsule) 4 mg PO BEDTIME [facility]; Protocol Last Admin: 05/04/22 20:00 Dose: 4 mg Sertraline HCl (Sertraline Hcl 50 Mg Tablet) 150 mg PO DAILY [facility] Last Admin: 05/05/22 08:09 Dose: 150 mg Sumatriptan Succinate (Sumatriptan Succinate 50 Mg Tablet) 50 mg PO DAILY MRX1 PRN PRN Reason: Migraine Headache Trazodone HCl (Trazodone Hcl 50 Mg Tablet) 50 mg PO BEDTIME PRN PRN Reason: Insomnia Allergies Allergies Allergy/AdvReac Type Severity Reaction Status Date / Time Penicillins Allergy Rash Verified 04/30/22 18:36 Assessment & Plan Assessment & Plan (1) Severe recurrent major depression w/psychotic features, mood-congruent: Status: Acute Code(s): F33.3 - Major depressive disorder, recurrent, severe with psychotic symptoms (2) Opioid use disorder: Status: Acute Code(s): F11.90 - Opioid use, unspecified, uncomplicated Plan 46 yo male, hx of recurrent major depression with psychosis, opiate use disorder, currently on Methadone. Recent completion of [place] program with transfer to [facility] sober living program where he found that peers were selling drugs, using drugs and not living in a sober environment. This, along with an argument with his family in [place] precipitated a relapse, increase in command voices to hang himself. Plan: Medications reconciled with [facility]. Continue current regime TSH B12 Folate A1C 05/03/22: Increase HS Prazosin to 4 mg Risperdal 0.5 mg HS Discharge planning. 05/04/22 Discontinue Risperdal Increase Olanzapine to 10 mg at HS 05/05/22 Increase HS Olanzapine to 15 mg Topiramate 25 mg daily-mood and headache mgt. I spent minutes with the patient and/or on the patient floor today, greater than?50% of which was spent counseling/coordinating care. Patient educated on: medication risk/benefits Informed Consent: understands and further education needed Reason for contiued inpatient stay Substantial Risk for: harm to self, inability to function and rapid decompensat ion
[2022-05-05] MEDS: Prazosin HCL 1 MG CAPSULE 4 MG PO (19:52)
[2022-05-05] MEDS: OLANZapine 7.5 MG TABLET 15 MG PO (19:52)
--- NOTE | 2022-05-05 23:58 | PC.NURSE ---
Patient did c/o not being able to sleep due to his roommate having a patient observer. Patient was given ear plugs. It was also noted patient was asking different staff for packets of jelly and had probably consumed 15 packets before being cut off.
[2022-05-06] MEDS: methADONE HCl 20 MG/2 ML ORAL.CONC 135 MG PO (08:12)
[2022-05-06] MEDS: Sertraline HCL 50 MG TABLET 150 MG PO (08:13)
[2022-05-06] MEDS: levETIRAcetam 500 MG TABLET PO ×2 (08:13→19:54)
[2022-05-06] MEDS: buPROPion HCl XL 150 MG TAB.ER.24H PO ×2 (08:13→12:12)
[2022-05-06] MEDS: OLANZapine 5 MG TABLET PO (08:13)
[2022-05-06] MEDS: Topiramate 25 MG TABLET PO (08:13)
[2022-05-06] MEDS: Gabapentin 400 MG CAPSULE 800 MG PO ×3 (08:13→19:53)
[2022-05-06] MEDS: Multivitamin TABLET 1 TAB PO (08:13)
[2022-05-06] MEDS: Bictegrav/Emtricit/Tenofov Ala TABLET 1 TAB PO (08:13)
[2022-05-06] MEDS: Prazosin HCL 1 MG CAPSULE 2 MG PO ×2 (08:13→19:54)
[2022-05-06 08:16] VITALS: BP 137/91; PULSE 83; RESP 18; TEMP 36.3; O2SAT 96; BMI 35.4
--- NOTE | 2022-05-06 14:44 | HO.PSYCHPN ---
Subjective Subjective Date of Service: 05/06/22 Reason For Visit: depression Subjective Notes: Conditional Voluntary Healthcare Proxy: No Guardianship: No Medical Problems Affecting Mental Status: No Interim History: Reports depressed mood/insomnia due to room-mate's need for one to one special-describes difficulty with others watching him sleep due to previous traumatic experience. Discussed potential for [facility] referral which he is hopeful for. Overall reports sadness and internal restless given lack of clear plan for housing upon discharge. Discussed a room change with team-they will work on this. Medication Compliance: Yes Side effects from medications: No Attending Groups: Intermittent Review of Systems Acute medical concerns: No Medical Review of Systems: unchanged Review of Systems Psychiatric: Reports abnormal sleep pattern, Reports anxiety, Reports depression and Reports hopelessness Mental Status Exam Mental Status Exam Patient Appearance: Appropriate Patient Orientation: Person, Place, Time and Situation Level of Consciousness: Alert Patient Behavior: Appropriate, Talkative, Cooperative and Good Eye Contact Mood Description: Depressed and Anxious Affect Description: Flat Patient Cognition Impaired: No Ability to Follow Directions: Good Speech Pattern: Appropriate and Spontaneous Speech Memory Description: Intact Hallucinations: Auditory Delusions: Paranoid Ideation Perceptual Disturbances: Depersonalization and Derealization Thought Process: Distracted and Rumination Thought Content: positive for Perseveration (worry) and positive for Suicidal Ideation (reports feeling safe on the unit today) Depressive Symptoms: Increased Anxiety, Difficulty Sleeping and Thoughts of /Suicide (denies, reports he is feeling safe on the unit.) Abnormal Motor Activity Signs and Symptoms: Restlessness Judgement: Fair Diagnostics Vital Signs (24Hr): Vital Signs - 24 hr 05/05/22 18:00 05/06/22 08:16 Temperature 97.9 F 97.4 F Pulse Rate 85 83 Respiratory Rate 14 18 Blood Pressure 140/80 H 137/91 H Pulse Oximetry 96 Oxygen Delivery Method Room Air BMI result Body Mass Index 35.4 Labs Results: 04/30/22 18:26 05/02/22 08:09 Imaging Radiology Impressions: ITS Impressions Chest X-Ray 04/30/22 17:52 IMPRESSION: No acute cardiopulmonary process. Medications Medications Current Medications Acetaminophen (Acetaminophen 325 Mg Tablet) 650 mg PO Q6H PRN PRN Reason: Headache/Pain Mild Scale (1-3) Last Admin: 05/04/22 12:02 Dose: 650 mg Al Hydroxide/Mg Hydroxide (Magnesium Hydrox/Alum Hydrox 30 Ml Oral.Susp) 30 ml PO Q6H PRN PRN Reason: Heartburn/Nausea Bictegravir/Emtricitabine/Tenofovir (Bictegrav/Emtricit/Tenofov Ala Tablet) 1 tab PO DAILY [facility] Last Admin: 05/06/22 08:13 Dose: 1 tab Bupropion HCl (Bupropion Hcl Xl 150 Mg Tab.Er.24h) 150 mg PO 0900,1300 [facility] Last Admin: 05/06/22 12:12 Dose: 150 mg Clonidine HCl (Clonidine Hcl 0.1 Mg Tablet) 0.1 mg PO BID PRN; Protocol PRN Reason: anxiety Last Admin: 05/04/22 14:12 Dose: 0.1 mg Gabapentin (Gabapentin 400 Mg Capsule) 800 mg PO TID [facility] Last Admin: 05/06/22 14:24 Dose: 800 mg Hydroxyzine HCl (Hydroxyzine Hcl 25 Mg Tablet) 25 mg PO BEDTIME PRN PRN Reason: Anxiety Last Admin: 05/02/22 13:48 Dose: 25 mg Levetiracetam (Levetiracetam 500 Mg Tablet) 500 mg PO BID [facility] Last Admin: 05/06/22 08:13 Dose: 500 mg Magnesium Hydroxide (Milk Of Magnesia 30 Ml Oral.Susp) 30 ml PO DAILY PRN PRN Reason: Constipation Methadone HCl (Methadone Hcl 20 Mg/2 Ml Oral.Conc) 135 mg PO DAILY [facility] Last Admin: 05/06/22 08:12 Dose: 135 mg Multivitamins/Vitamin C (Multivitamin Tablet) 1 tab PO DAILY [facility] Last Admin: 05/06/22 08:13 Dose: 1 tab Nicotine (Nicotine 21 Mg Patch.Td24) 21 mg TRANSDERMA DAILY [facility] Last Admin: 05/06/22 08:15 Dose: Not Given Non-Formulary Medication (Lumateperone [Caplyta]) 1 cap PO BEDTIME [facility] Non-Formulary Medication (Sofosbuvir-Velpatasvir) 1 tab PO DAILY [facility] Olanzapine (Olanzapine 5 Mg Tablet) 5 mg PO DAILY [facility] Last Admin: 05/06/22 08:13 Dose: 5 mg Olanzapine (Olanzapine 7.5 Mg Tablet) 15 mg PO BEDTIME [facility] Last Admin: 05/05/22 19:52 Dose: 15 mg Prazosin HCl (Prazosin Hcl 1 Mg Capsule) 2 mg PO BID [facility]; Protocol Last Admin: 05/06/22 08:13 Dose: 2 mg Prazosin HCl (Prazosin Hcl 1 Mg Capsule) 4 mg PO BEDTIME [facility]; Protocol Last Admin: 05/05/22 19:52 Dose: 4 mg Sertraline HCl (Sertraline Hcl 50 Mg Tablet) 150 mg PO DAILY [facility] Last Admin: 05/06/22 08:13 Dose: 150 mg Sumatriptan Succinate (Sumatriptan Succinate 50 Mg Tablet) 50 mg PO DAILY MRX1 PRN PRN Reason: Migraine Headache Topiramate (Topiramate 25 Mg Tablet) 25 mg PO DAILY [facility] Last Admin: 05/06/22 08:13 Dose: 25 mg Trazodone HCl (Trazodone Hcl 50 Mg Tablet) 50 mg PO BEDTIME PRN PRN Reason: Insomnia Allergies Allergies Allergy/AdvReac Type Severity Reaction Status Date / Time Penicillins Allergy Rash Verified 04/30/22 18:36 Assessment & Plan Assessment & Plan (1) Severe recurrent major depression w/psychotic features, mood-congruent: Status: Acute Code(s): F33.3 - Major depressive disorder, recurrent, severe with psychotic symptoms (2) Opioid use disorder: Status: Acute Code(s): F11.90 - Opioid use, unspecified, uncomplicated Plan 46 yo male, hx of recurrent major depression with psychosis, opiate use disorder, currently on Methadone. Recent completion of [facility] program with transfer to [facility] sober living program where he found that peers were selling drugs, using drugs and not living in a sober environment. This, along with an argument with his family in [place] precipitated a relapse, increase in command voices to hang himself. Plan: Medications reconciled with [facility]. Continue current regime TSH B12 Folate A1C 05/03/22: Increase HS Prazosin to 4 mg Risperdal 0.5 mg HS Discharge planning. 05/04/22 Discontinue Risperdal Increase Olanzapine to 10 mg at HS 05/05/22 Increase HS Olanzapine to 15 mg Topiramate 25 mg daily-mood and headache mgt. 05/06/22 Increase Sertraline to 200 mg daily Request for room change with a room-mate who does not require 1-1 as it appears to be activating PTSD Sx. I spent minutes with the patient and/or on the patient floor today, greater than?50% of which was spent counseling/coordinating care. Patient educated on: medication risk/benefits, therapeutic strategies and other Informed Consent: understands Reason for contiued inpatient stay Substantial Risk for: harm to self, inability to function and rapid decompensation
[2022-05-06 19:40] VITALS: BP 131/72; PULSE 92; TEMP 36.4
[2022-05-06] MEDS: cloNIDine HCL 0.1 MG TABLET PO (19:52)
[2022-05-06] MEDS: OLANZapine 7.5 MG TABLET 15 MG PO (19:53)
[2022-05-06] MEDS: Prazosin HCL 1 MG CAPSULE 4 MG PO (19:55)
[2022-05-07] MEDS: methADONE HCl 20 MG/2 ML ORAL.CONC 135 MG PO (08:12)
[2022-05-07] MEDS: Prazosin HCL 1 MG CAPSULE 2 MG PO ×2 (08:13→21:46)
[2022-05-07] MEDS: Bictegrav/Emtricit/Tenofov Ala TABLET 1 TAB PO (08:13)
[2022-05-07] MEDS: Gabapentin 400 MG CAPSULE 800 MG PO ×3 (08:13→21:45)
[2022-05-07] MEDS: buPROPion HCl XL 150 MG TAB.ER.24H PO ×2 (08:13→12:00)
[2022-05-07] MEDS: levETIRAcetam 500 MG TABLET PO ×2 (08:13→21:46)
[2022-05-07] MEDS: Topiramate 25 MG TABLET PO (08:13)
[2022-05-07] MEDS: OLANZapine 5 MG TABLET PO (08:14)
[2022-05-07] MEDS: Multivitamin TABLET 1 TAB PO (08:14)
[2022-05-07 08:15] VITALS: BP 131/84; PULSE 96; RESP 18; TEMP 36.4; O2SAT 96
[2022-05-07] MEDS: Sertraline HCL 100 MG TABLET 200 MG PO (08:17)
--- NOTE | 2022-05-07 13:07 | P.PNPSI_ITS ---
Subjective Subjective Date of Service: 05/07/22 Reason For Visit: depression Subjective Notes: Conditional Voluntary Interim History: Pt endorses depressed mood, anhedonia, passive SI. He denies plan or intent. He reports wanting to go to [facility]. He reports hx of AH, but denies current symptoms. He reports having a migraine- reports triptans not helpful- We discussed one time remingtont while in hospital but need to address skilled nursing prophylactic. No behavioral concerns. Medication Compliance: Yes Side effects from medications: No Review of Systems Review of Systems Constitutional: No Fever, No Chills ENT/Mouth: No sore throat, No Rhinorrhea, No Swallowing Difficulty Eyes: No Eye Pain, No Swelling, No Redness Cardiovascular: + Chest Pain, No SOB, No Orthopnea, No Edema Respiratory: No Cough, No Sputum, No Wheezing, No dyspnea Gastrointestinal: No Nausea, No Vomiting, No Diarrhea, No abdominal Pain Genitourinary: No Dysuria, No Urinary Frequency, No Hematuria Musculoskeletal: No joint pain, No Myalgias Skin: No Skin Lesions, No rash Neuro: No Weakness, No Numbness, No Dizziness, + Headache Psych: + Anxiety/Panic, +Depression, +SI, No HI, No AH, NO VH Heme/Lymph: No Bruising, No Lymphadenopathy Endocrine: No Polyuria, No Polydipsia Yes all other systems are reviewed and are negative Reports behavioral changes Psychiatric: Reports abnormal sleep pattern, Reports anxiety, Reports behavioral changes, Reports change in appetite, Reports depression, Reports difficulty concentrating, Reports auditory hallucinations, Reports hopelessness, Reports irritability, Reports anhedonia, Reports mood swings, Reports visual hallucinations, Reports hallucinations and Reports suicidal ideation (denies) Mental Status Exam Mental Status Exam Patient Appearance: Appropriate Patient Orientation: Person, Place, Time and Situation Level of Consciousness: Alert Patient Behavior: Appropriate, Talkative, Cooperative and Good Eye Contact Mood Description: Depressed and Anxious Affect Description: Flat Patient Cognition Impaired: No Ability to Follow Directions: Good Speech Pattern: Appropriate and Spontaneous Speech Memory Description: Intact Diagnostics Vital Signs (24Hr): Vital Signs - 24 hr 05/07/22 08:15 Temperature 97.6 F Pulse Rate 96 Respiratory Rate 18 Blood Pressure 131/84 Pulse Oximetry 96 Oxygen Delivery Method Room Air BMI result Body Mass Index 35.4 Labs Results: 04/30/22 18:26 05/02/22 08:09 Imaging Radiology Impressions: ITS Impressions Chest X-Ray 04/30/22 17:52 IMPRESSION: No acute cardiopulmonary process. Medications Medications Current Medications Acetaminophen (Acetaminophen 325 Mg Tablet) 650 mg PO Q6H PRN PRN Reason: Headache/Pain Mild Scale (1-3) Last Admin: 05/04/22 12:02 Dose: 650 mg Al Hydroxide/Mg Hydroxide (Magnesium Hydrox/Alum Hydrox 30 Ml Oral.Susp) 30 ml PO Q6H PRN PRN Reason: Heartburn/Nausea Bictegravir/Emtricitabine/Tenofovir (Bictegrav/Emtricit/Tenofov Ala Tablet) 1 tab PO DAILY [facility] Last Admin: 05/07/22 08:13 Dose: 1 tab Bupropion HCl (Bupropion Hcl Xl 150 Mg Tab.Er.24h) 150 mg PO 0900,1300 [facility] Last Admin: 05/07/22 12:00 Dose: 150 mg Clonidine HCl (Clonidine Hcl 0.1 Mg Tablet) 0.1 mg PO BID PRN; Protocol PRN Reason: anxiety Last Admin: 05/06/22 19:52 Dose: 0.1 mg Gabapentin (Gabapentin 400 Mg Capsule) 800 mg PO TID [facility] Last Admin: 05/07/22 14:42 Dose: 800 mg Hydroxyzine HCl (Hydroxyzine Hcl 25 Mg Tablet) 25 mg PO BEDTIME PRN PRN Reason: Anxiety Last Admin: 05/02/22 13:48 Dose: 25 mg Levetiracetam (Levetiracetam 500 Mg Tablet) 500 mg PO BID [facility] Last Admin: 05/07/22 08:13 Dose: 500 mg Magnesium Hydroxide (Milk Of Magnesia 30 Ml Oral.Susp) 30 ml PO DAILY PRN PRN Reason: Constipation Methadone HCl (Methadone Hcl 20 Mg/2 Ml Oral.Conc) 135 mg PO DAILY [facility] Last Admin: 05/07/22 08:12 Dose: 135 mg Multivitamins/Vitamin C (Multivitamin Tablet) 1 tab PO DAILY [facility] Last Admin: 05/07/22 08:14 Dose: 1 tab Nicotine (Nicotine 21 Mg Patch.Td24) 21 mg TRANSDERMA DAILY [facility] Last Admin: 05/07/22 08:14 Dose: Not Given Non-Formulary Medication (Lumateperone [Caplyta]) 1 cap PO BEDTIME [facility] Non-Formulary Medication (Sofosbuvir-Velpatasvir) 1 tab PO DAILY [facility] Olanzapine (Olanzapine 5 Mg Tablet) 5 mg PO DAILY [facility] Last Admin: 05/07/22 08:14 Dose: 5 mg Olanzapine (Olanzapine 7.5 Mg Tablet) 15 mg PO BEDTIME [facility] Last Admin: 05/06/22 19:53 Dose: 15 mg Prazosin HCl (Prazosin Hcl 1 Mg Capsule) 2 mg PO BID [facility]; Protocol Last Admin: 05/07/22 08:13 Dose: 2 mg Prazosin HCl (Prazosin Hcl 1 Mg Capsule) 4 mg PO BEDTIME [facility]; Protocol Last Admin: 05/06/22 19:55 Dose: 4 mg Sertraline HCl (Sertraline Hcl 100 Mg Tablet) 200 mg PO DAILY [facility] Last Admin: 05/07/22 08:17 Dose: 200 mg Sumatriptan Succinate (Sumatriptan Succinate 50 Mg Tablet) 50 mg PO DAILY MRX1 PRN PRN Reason: Migraine Headache Topiramate (Topiramate 25 Mg Tablet) 25 mg PO DAILY [facility] Last Admin: 05/07/22 08:13 Dose: 25 mg Trazodone HCl (Trazodone Hcl 50 Mg Tablet) 50 mg PO BEDTIME PRN PRN Reason: Insomnia Allergies Allergies Allergy/AdvReac Type Severity Reaction Status Date / Time Penicillins Allergy Rash Verified 04/30/22 18:36 Assessment & Plan Assessment & Plan (1) Severe recurrent major depression w/psychotic features, mood-congruent: Status: Acute Code(s): F33.3 - Major depressive disorder, recurrent, severe with psychotic symptoms (2) Opioid use disorder: Status: Acute Code(s): F11.90 - Opioid use, unspecified, uncomplicated Plan 46 yo male, hx of recurrent major depression with psychosis, opiate use disorder, currently on Methadone. Recent completion of [facility] program with transfer to [facility] sober living program where he found that peers were selling drugs, using drugs and not living in a sober environment. This, along with an argument with his family in [place] precipitated a relapse, increase in command voices to hang himself. Plan: Medications reconciled with [facility]. Continue current regime TSH B12 Folate A1C 05/03/22: Increase HS Prazosin to 4 mg Risperdal 0.5 mg HS Discharge planning. 05/04/22 Discontinue Risperdal Increase Olanzapine to 10 mg at HS 05/05/22 Increase HS Olanzapine to 15 mg Topiramate 25 mg daily-mood and headache mgt. 05/06/22 Increase Sertraline to 200 mg daily Request for room change with a room-mate who does not require 1-1 as it appears to be activating PTSD Sx. 05/07 continue current medications. I spent minutes with the patient and/or on the patient floor today, greater than?50% of which was spent counseling/coordinating care. Reason for contiued inpatient stay Substantial Risk for: harm to self
[2022-05-07 21:45] VITALS: BP 134/78; PULSE 94; TEMP 36.5
[2022-05-07] MEDS: Butalb/Acetamin/Caff 50/325/40 TABLET 1 TAB PO (21:45)
[2022-05-07] MEDS: OLANZapine 7.5 MG TABLET 15 MG PO (21:46)
[2022-05-07] MEDS: Prazosin HCL 1 MG CAPSULE 4 MG PO (21:47)
[2022-05-07] MEDS: cloNIDine HCL 0.1 MG TABLET PO (21:49)
[2022-05-08] MEDS: OLANZapine 5 MG TABLET PO (07:55)
[2022-05-08] MEDS: methADONE HCl 20 MG/2 ML ORAL.CONC 135 MG PO (07:55)
[2022-05-08] MEDS: buPROPion HCl XL 150 MG TAB.ER.24H PO ×2 (07:55→12:08)
[2022-05-08] MEDS: Sertraline HCL 100 MG TABLET 200 MG PO (07:55)
[2022-05-08] MEDS: Gabapentin 400 MG CAPSULE 800 MG PO ×3 (07:55→21:21)
[2022-05-08] MEDS: Prazosin HCL 1 MG CAPSULE 2 MG PO ×2 (07:55→21:23)
[2022-05-08] MEDS: levETIRAcetam 500 MG TABLET PO ×2 (07:55→21:22)
[2022-05-08] MEDS: Multivitamin TABLET 1 TAB PO (07:55)
[2022-05-08] MEDS: Topiramate 25 MG TABLET PO ×2 (07:56→21:25)
[2022-05-08] MEDS: Bictegrav/Emtricit/Tenofov Ala TABLET 1 TAB PO (07:56)
[2022-05-08 07:57] VITALS: BP 130/74; PULSE 105; RESP 20; TEMP 36.7; O2SAT 96
[2022-05-08] MEDS: cloNIDine HCL 0.1 MG TABLET PO ×2 (12:08→21:26)
[2022-05-08 18:00] VITALS: BP 127/70; PULSE 90; RESP 18; TEMP 36.9; O2SAT 96
--- NOTE | 2022-05-08 19:17 | HO.PSYCHPN ---
Subjective Subjective Date of Service: 05/08/22 Reason For Visit: depression Interim History: Patient seen and discussed. Patient complaining of a migraine. He says the fioricet helped. He continues to feel depressed. He has passive SI and no plans or intent of harm to self or others. He reports wanting to go to [facility]. He reports hx of AH, but denies current No behavioral concerns. Review of Systems Review of Systems Constitutional: No Fever, No Chills ENT/Mouth: No sore throat, No Rhinorrhea, No Swallowing Difficulty Eyes: No Eye Pain, No Swelling, No Redness Cardiovascular: + Chest Pain, No SOB, No Orthopnea, No Edema Respiratory: No Cough, No Sputum, No Wheezing, No dyspnea Gastrointestinal: No Nausea, No Vomiting, No Diarrhea, No abdominal Pain Genitourinary: No Dysuria, No Urinary Frequency, No Hematuria Musculoskeletal: No joint pain, No Myalgias Skin: No Skin Lesions, No rash Neuro: No Weakness, No Numbness, No Dizziness, + Headache Psych: + Anxiety/Panic, +Depression, +SI, No HI, No AH, NO VH Heme/Lymph: No Bruising, No Lymphadenopathy Endocrine: No Polyuria, No Polydipsia Yes all other systems are reviewed and are negative Reports behavioral changes Psychiatric: Reports abnormal sleep pattern, Reports anxiety, Reports behavioral changes, Reports change in appetite, Reports depression, Reports difficulty concentrating, Reports auditory hallucinations, Reports hopelessness, Reports irritability, Reports anhedonia, Reports mood swings, Reports visual hallucinations, Reports hallucinations and Reports suicidal ideation (denies) Mental Status Exam Mental Status Exam Patient Appearance: Appropriate Patient Orientation: Person, Place, Time and Situation Level of Consciousness: Alert Patient Behavior: Appropriate, Talkative, Cooperative and Good Eye Contact Mood Description: Depressed and Anxious Affect Description: Flat Patient Cognition Impaired: No Ability to Follow Directions: Good Speech Pattern: Appropriate and Spontaneous Speech Memory Description: Intact Diagnostics Vital Signs (24Hr): Vital Signs - 24 hr 05/07/22 21:45 05/08/22 07:57 05/08/22 18:00 Temperature 97.7 F 98.0 F 98.4 F Pulse Rate 94 105 H 90 Respiratory Rate 20 18 Blood Pressure 134/78 130/74 127/70 Pulse Oximetry 96 96 Oxygen Delivery Method Room Air Room Air BMI result Body Mass Index 35.4 Labs Results: 04/30/22 18:26 05/02/22 08:09 Imaging Radiology Impressions: ITS Impressions Chest X-Ray 04/30/22 17:52 IMPRESSION: No acute cardiopulmonary process. Medications Medications Current Medications Acetaminophen (Acetaminophen 325 Mg Tablet) 650 mg PO Q6H PRN PRN Reason: Headache/Pain Mild Scale (1-3) Last Admin: 05/04/22 12:02 Dose: 650 mg Al Hydroxide/Mg Hydroxide (Magnesium Hydrox/Alum Hydrox 30 Ml Oral.Susp) 30 ml PO Q6H PRN PRN Reason: Heartburn/Nausea Bictegravir/Emtricitabine/Tenofovir (Bictegrav/Emtricit/Tenofov Ala Tablet) 1 tab PO DAILY [facility] Last Admin: 05/08/22 07:56 Dose: 1 tab Bupropion HCl (Bupropion Hcl Xl 150 Mg Tab.Er.24h) 150 mg PO 0900,1300 [facility] Last Admin: 05/08/22 12:08 Dose: 150 mg Clonidine HCl (Clonidine Hcl 0.1 Mg Tablet) 0.1 mg PO BID PRN; Protocol PRN Reason: anxiety Last Admin: 05/08/22 12:08 Dose: 0.1 mg Gabapentin (Gabapentin 400 Mg Capsule) 800 mg PO TID [facility] Last Admin: 05/08/22 14:29 Dose: 800 mg Hydroxyzine HCl (Hydroxyzine Hcl 25 Mg Tablet) 25 mg PO BEDTIME PRN PRN Reason: Anxiety Last Admin: 05/02/22 13:48 Dose: 25 mg Levetiracetam (Levetiracetam 500 Mg Tablet) 500 mg PO BID [facility] Last Admin: 05/08/22 07:55 Dose: 500 mg Magnesium Hydroxide (Milk Of Magnesia 30 Ml Oral.Susp) 30 ml PO DAILY PRN PRN Reason: Constipation Methadone HCl (Methadone Hcl 20 Mg/2 Ml Oral.Conc) 135 mg PO DAILY [facility] Last Admin: 05/08/22 07:55 Dose: 135 mg Multivitamins/Vitamin C (Multivitamin Tablet) 1 tab PO DAILY [facility] Last Admin: 05/08/22 07:55 Dose: 1 tab Nicotine (Nicotine 21 Mg Patch.Td24) 21 mg TRANSDERMA DAILY [facility] Last Admin: 05/08/22 07:57 Dose: Not Given Non-Formulary Medication (Lumateperone [Caplyta]) 1 cap PO BEDTIME [facility] Non-Formulary Medication (Sofosbuvir-Velpatasvir) 1 tab PO DAILY [facility] Olanzapine (Olanzapine 5 Mg Tablet) 5 mg PO DAILY [facility] Last Admin: 05/08/22 07:55 Dose: 5 mg Olanzapine (Olanzapine 7.5 Mg Tablet) 15 mg PO BEDTIME [facility] Last Admin: 05/07/22 21:46 Dose: 15 mg Prazosin HCl (Prazosin Hcl 1 Mg Capsule) 2 mg PO BID [facility]; Protocol Last Admin: 05/08/22 07:55 Dose: 2 mg Prazosin HCl (Prazosin Hcl 1 Mg Capsule) 4 mg PO BEDTIME [facility]; Protocol Last Admin: 05/07/22 21:47 Dose: 4 mg Sertraline HCl (Sertraline Hcl 100 Mg Tablet) 200 mg PO DAILY [facility] Last Admin: 05/08/22 07:55 Dose: 200 mg Sumatriptan Succinate (Sumatriptan Succinate 50 Mg Tablet) 50 mg PO DAILY MRX1 PRN PRN Reason: Migraine Headache Topiramate (Topiramate 25 Mg Tablet) 25 mg PO BID [facility] Trazodone HCl (Trazodone Hcl 50 Mg Tablet) 50 mg PO BEDTIME PRN PRN Reason: Insomnia Allergies Allergies Allergy/AdvReac Type Severity Reaction Status Date / Time Penicillins Allergy Rash Verified 04/30/22 18:36 Assessment & Plan Assessment & Plan (1) Severe recurrent major depression w/psychotic features, mood-congruent: Status: Acute Code(s): F33.3 - Major depressive disorder, recurrent, severe with psychotic symptoms (2) Opioid use disorder: Status: Acute Code(s): F11.90 - Opioid use, unspecified, uncomplicated Plan 46 yo male, hx of recurrent major depression with psychosis, opiate use disorder, currently on Methadone. Recent completion of [facility] program with transfer to [facility] sober living program where he found that peers were selling drugs, using drugs and not living in a sober environment. This, along with an argument with his family in [place] precipitated a relapse, increase in command voices to hang himself. Plan: Medications reconciled with [facility] Main [facility]. Continue current regime TSH B12 Folate A1C 05/03/22: Increase HS Prazosin to 4 mg Risperdal 0.5 mg HS Discharge planning. 05/04/22 Discontinue Risperdal Increase Olanzapine to 10 mg at HS 05/05/22 Increase HS Olanzapine to 15 mg Topiramate 25 mg daily-mood and headache mgt. 05/06/22 Increase Sertraline to 200 mg daily Request for room change with a room-mate who does not require 1-1 as it appears to be activating PTSD Sx. 05/07 continue current medications. 05/08 increase topamax to 25 mg BID targeting headaches I spent minutes with the patient and/or on the patient floor today, greater than?50% of which was spent counseling/coordinating care. Reason for contiued inpatient stay Substantial Risk for: harm to self and rapid decompensation
[2022-05-08] MEDS: OLANZapine 7.5 MG TABLET 15 MG PO (21:22)
[2022-05-08] MEDS: Prazosin HCL 1 MG CAPSULE 4 MG PO (21:23)
--- NOTE | 2022-05-09 | ECG_ITS ---
Test Reason : cp Blood Pressure : / mmHG Vent. Rate : 089 BPM Atrial Rate : 089 BPM P-R Int : 156 ms QRS Dur : 088 ms QT Int : 374 ms P-R-T Axes : 049 048 044 degrees QTc Int : 455 ms Normal sinus rhythm Normal ECG When compared to the previous EKG of No significant changes seen Referred By: Lucie Bailey Electronically Signed By:Kadeem Chou
[2022-05-09] MEDS: methADONE HCl 20 MG/2 ML ORAL.CONC 135 MG PO (08:09)
[2022-05-09] MEDS: Sertraline HCL 100 MG TABLET 200 MG PO (08:10)
[2022-05-09] MEDS: Bictegrav/Emtricit/Tenofov Ala TABLET 1 TAB PO (08:10)
[2022-05-09] MEDS: Gabapentin 400 MG CAPSULE 800 MG PO ×3 (08:10→20:51)
[2022-05-09] MEDS: Prazosin HCL 1 MG CAPSULE 2 MG PO ×2 (08:10→20:52)
[2022-05-09] MEDS: OLANZapine 5 MG TABLET PO (08:10)
[2022-05-09] MEDS: levETIRAcetam 500 MG TABLET PO ×2 (08:10→20:51)
[2022-05-09] MEDS: Topiramate 25 MG TABLET PO ×2 (08:10→20:54)
[2022-05-09] MEDS: buPROPion HCl XL 150 MG TAB.ER.24H PO ×2 (08:10→12:30)
[2022-05-09] MEDS: Multivitamin TABLET 1 TAB PO (08:10)
[2022-05-09 08:12] VITALS: BP 129/70; PULSE 101; RESP 20; TEMP 36.6; O2SAT 95
--- NOTE | 2022-05-09 11:01 | P.PNPSI_ITS ---
Subjective Subjective Date of Service: 05/09/22 Reason For Visit: depression Interim History: Patient seen and discussed. Patient says his headache is better. He continues to report auditory hallucinations with command but denies he would act on the voices. Says Zyprexa had been helpful. He continues to feel depressed. Says he didn't sleep well due to same. He has passive SI and no plans or intent of harm to self or others. He reports wanting to go to [facility]. No behavioral concerns. Review of Systems Review of Systems Constitutional: No Fever, No Chills ENT/Mouth: No sore throat, No Rhinorrhea, No Swallowing Difficulty Eyes: No Eye Pain, No Swelling, No Redness Cardiovascular: + Chest Pain, No SOB, No Orthopnea, No Edema Respiratory: No Cough, No Sputum, No Wheezing, No dyspnea Gastrointestinal: No Nausea, No Vomiting, No Diarrhea, No abdominal Pain Genitourinary: No Dysuria, No Urinary Frequency, No Hematuria Musculoskeletal: No joint pain, No Myalgias Skin: No Skin Lesions, No rash Neuro: No Weakness, No Numbness, No Dizziness, + Headache Psych: + Anxiety/Panic, +Depression, +SI, No HI, No AH, NO VH Heme/Lymph: No Bruising, No Lymphadenopathy Endocrine: No Polyuria, No Polydipsia Yes all other systems are reviewed and are negative Reports behavioral changes Psychiatric: Reports abnormal sleep pattern, Reports anxiety, Reports behavioral changes, Reports change in appetite, Reports depression, Reports difficulty concentrating, Reports auditory hallucinations, Reports hopelessness, Reports irritability, Reports anhedonia, Reports mood swings, Reports visual hallucinations, Reports hallucinations and Reports suicidal ideation (denies) Mental Status Exam Mental Status Exam Patient Appearance: Appropriate Patient Orientation: Person, Place, Time and Situation Level of Consciousness: Alert Patient Behavior: Appropriate, Talkative, Cooperative and Good Eye Contact Mood Description: Depressed and Anxious Affect Description: Depressed, Anxious and Flat Patient Cognition Impaired: No Ability to Follow Directions: Good Speech Pattern: Appropriate and Spontaneous Speech Memory Description: Intact Hallucinations: Auditory Delusions: Not Present Thought Process: Intact, Goal Oriented and Linear Thought Content: positive for Goal Oriented Depressive Symptoms: Increased Anxiety and Insomnia Diagnostics Vital Signs (24Hr): Vital Signs - 24 hr 05/08/22 18:00 05/09/22 08:12 Temperature 98.4 F 97.9 F Pulse Rate 90 101 H Respiratory Rate 18 20 Blood Pressure 127/70 129/70 Pulse Oximetry 96 95 Oxygen Delivery Method Room Air Room Air BMI result Body Mass Index 35.4 Labs Results: 04/30/22 18:26 05/02/22 08:09 Imaging Radiology Impressions: ITS Impressions Chest X-Ray 04/30/22 17:52 IMPRESSION: No acute cardiopulmonary process. Medications Medications Current Medications Acetaminophen (Acetaminophen 325 Mg Tablet) 650 mg PO Q6H PRN PRN Reason: Headache/Pain Mild Scale (1-3) Last Admin: 05/04/22 12:02 Dose: 650 mg Al Hydroxide/Mg Hydroxide (Magnesium Hydrox/Alum Hydrox 30 Ml Oral.Susp) 30 ml PO Q6H PRN PRN Reason: Heartburn/Nausea Bictegravir/Emtricitabine/Tenofovir (Bictegrav/Emtricit/Tenofov Ala Tablet) 1 tab PO DAILY [facility] Last Admin: 05/09/22 08:10 Dose: 1 tab Bupropion HCl (Bupropion Hcl Xl 150 Mg Tab.Er.24h) 150 mg PO 0900,1300 [facility] Last Admin: 05/09/22 08:10 Dose: 150 mg Clonidine HCl (Clonidine Hcl 0.1 Mg Tablet) 0.1 mg PO BID PRN; Protocol PRN Reason: anxiety Last Admin: 05/08/22 21:26 Dose: 0.1 mg Gabapentin (Gabapentin 400 Mg Capsule) 800 mg PO TID [facility] Last Admin: 05/09/22 08:10 Dose: 800 mg Hydroxyzine HCl (Hydroxyzine Hcl 25 Mg Tablet) 25 mg PO BEDTIME PRN PRN Reason: Anxiety Last Admin: 05/02/22 13:48 Dose: 25 mg Levetiracetam (Levetiracetam 500 Mg Tablet) 500 mg PO BID [facility] Last Admin: 05/09/22 08:10 Dose: 500 mg Magnesium Hydroxide (Milk Of Magnesia 30 Ml Oral.Susp) 30 ml PO DAILY PRN PRN Reason: Constipation Methadone HCl (Methadone Hcl 20 Mg/2 Ml Oral.Conc) 135 mg PO DAILY [facility] Last Admin: 05/09/22 08:09 Dose: 135 mg Multivitamins/Vitamin C (Multivitamin Tablet) 1 tab PO DAILY [facility] Last Admin: 05/09/22 08:10 Dose: 1 tab Nicotine (Nicotine 21 Mg Patch.Td24) 21 mg TRANSDERMA DAILY [facility] Last Admin: 05/09/22 08:11 Dose: Not Given Non-Formulary Medication (Lumateperone [Caplyta]) 1 cap PO BEDTIME [facility] Non-Formulary Medication (Sofosbuvir-Velpatasvir) 1 tab PO DAILY [facility] Olanzapine (Olanzapine 5 Mg Tablet) 5 mg PO DAILY [facility] Last Admin: 05/09/22 08:10 Dose: 5 mg Olanzapine (Olanzapine 7.5 Mg Tablet) 15 mg PO BEDTIME [facility] Last Admin: 05/08/22 21:22 Dose: 15 mg Prazosin HCl (Prazosin Hcl 1 Mg Capsule) 2 mg PO BID [facility]; Protocol Last Admin: 05/09/22 08:10 Dose: 2 mg Prazosin HCl (Prazosin Hcl 1 Mg Capsule) 4 mg PO BEDTIME [facility]; Protocol Last Admin: 05/08/22 21:23 Dose: 4 mg Sertraline HCl (Sertraline Hcl 100 Mg Tablet) 200 mg PO DAILY [facility] Last Admin: 05/09/22 08:10 Dose: 200 mg Sumatriptan Succinate (Sumatriptan Succinate 50 Mg Tablet) 50 mg PO DAILY MRX1 PRN PRN Reason: Migraine Headache Topiramate (Topiramate 25 Mg Tablet) 25 mg PO BID [facility] Last Admin: 05/09/22 08:10 Dose: 25 mg Trazodone HCl (Trazodone Hcl 50 Mg Tablet) 50 mg PO BEDTIME PRN PRN Reason: Insomnia Allergies Allergies Allergy/AdvReac Type Severity Reaction Status Date / Time Penicillins Allergy Rash Verified 04/30/22 18:36 Assessment & Plan Assessment & Plan (1) Severe recurrent major depression w/psychotic features, mood-congruent: Status: Acute Code(s): F33.3 - Major depressive disorder, recurrent, severe with psychotic symptoms (2) Opioid use disorder: Status: Acute Code(s): F11.90 - Opioid use, unspecified, uncomplicated Plan 46 yo male, hx of recurrent major depression with psychosis, opiate use disorder, currently on Methadone. Recent completion of [facility] program with transfer to [facility] program where he found that peers were selling drugs, using drugs and not living in a sober environment. This, along with an argument with his family in [place] precipitated a relapse, increase in command voices to hang himself. Plan: Medications reconciled with [facility]. Continue current regime TSH B12 Folate A1C 05/03/22: Increase HS Prazosin to 4 mg Risperdal 0.5 mg HS Discharge planning. 05/04/22 Discontinue Risperdal Increase Olanzapine to 10 mg at HS 05/05/22 Increase HS Olanzapine to 15 mg Topiramate 25 mg daily-mood and headache mgt. 05/06/22 Increase Sertraline to 200 mg daily Request for room change with a room-mate who does not require 1-1 as it appears to be activating PTSD Sx. 05/07 continue current medications. 05/08 increase topamax to 25 mg BID targeting headaches 05/09 Increase Zyprexa to 20 mg HS. I spent minutes with the patient and/or on the patient floor today, grea ter than?50% of which was spent counseling/coordinating care. Reason for contiued inpatient stay Substantial Risk for: harm to self, inability to function and rapid decompensation
[2022-05-09] MEDS: cloNIDine HCL 0.1 MG TABLET PO ×2 (12:30→18:08)
[2022-05-09 12:31] VITALS: BP 119/70; PULSE 106
[2022-05-09 18:33] VITALS: BP 125/80; PULSE 92; RESP 20; O2SAT 95
[2022-05-09 20:50] VITALS: BP 113/69; PULSE 88; TEMP 35.9
[2022-05-09] MEDS: OLANZapine 10 MG TABLET 20 MG PO (20:52)
[2022-05-09] MEDS: Prazosin HCL 1 MG CAPSULE 4 MG PO (20:53)
[2022-05-10 06:00] VITALS: BP 123/78; PULSE 97; RESP 18; TEMP 36.3; O2SAT 98
[2022-05-10] MEDS: OLANZapine 5 MG TABLET PO (08:58)
[2022-05-10] MEDS: Gabapentin 400 MG CAPSULE 800 MG PO ×3 (08:58→19:48)
[2022-05-10] MEDS: buPROPion HCl XL 150 MG TAB.ER.24H PO ×2 (08:59→12:02)
[2022-05-10] MEDS: Sertraline HCL 100 MG TABLET 200 MG PO (08:59)
[2022-05-10] MEDS: Topiramate 25 MG TABLET PO ×2 (08:59→19:48)
[2022-05-10] MEDS: levETIRAcetam 500 MG TABLET PO ×2 (08:59→19:48)
[2022-05-10] MEDS: Bictegrav/Emtricit/Tenofov Ala TABLET 1 TAB PO (08:59)
[2022-05-10] MEDS: Multivitamin TABLET 1 TAB PO (08:59)
[2022-05-10] MEDS: Prazosin HCL 1 MG CAPSULE 2 MG PO ×2 (08:59→19:49)
[2022-05-10] MEDS: methADONE HCl 20 MG/2 ML ORAL.CONC 135 MG PO (09:04)
[2022-05-10] MEDS: cloNIDine HCL 0.1 MG TABLET PO (15:06)
[2022-05-10] MEDS: chlorproMAZINE HCl 25 MG TABLET 50 MG PO (15:06)
[2022-05-10] MEDS: Butalb/Acetamin/Caff 50/325/40 TABLET 1 TAB PO (16:34)
--- NOTE | 2022-05-10 18:08 | HO.PSYCHPN ---
Subjective Subjective Date of Service: 05/10/22 Reason For Visit: depression Subjective Notes: Conditional Voluntary Healthcare Proxy: No Guardianship: No Medical Problems Affecting Mental Status: No Interim History: Pt had Olanzapine titrated to 20 mg and Topiramate titrated to 25 mg bid over the weekend. Reports of chest pain with negative EKG. Asks for prn for voices -chlorpromazine 50 mg tid prn tried. Reports MARGIE, voices intermittently and depression. Migraine sx are exacerbated. Fiorcet prn q 12h ordered along with neuro consult. Awaiting word from [facility] regarding admission. Medication Compliance: Yes Side effects from medications: No Attending Groups: Intermittent Review of Systems Acute medical concerns: No migraine sx Medical Review of Systems: unchanged Review of Systems Psychiatric: Reports abnormal sleep pattern, Reports depression and Reports auditory hallucinations Mental Status Exam Mental Status Exam Patient Appearance: Appropriate Patient Orientation: Person, Place, Time and Situation Level of Consciousness: Alert Patient Behavior: Talkative, Cooperative and Good Eye Contact Mood Description: Depressed Affect Description: Flat Patient Cognition Impaired: No Ability to Follow Directions: Good Speech Pattern: Spontaneous Speech and Soft-Spoken Memory Description: Intact Hallucinations: Auditory Delusions: Paranoid Ideation Perceptual Disturbances: Depersonalization and Derealization Thought Process: Rumination Thought Content: positive for Perseveration and positive for Suicidal Ideation (denies) Depressive Symptoms: Difficulty Sleeping, Thoughts of /Suicide (denies), Low Self Esteem and Difficulty Concentrating Judgement: Fair Diagnostics Vital Signs (24Hr): Vital Signs - 24 hr 05/09/22 18:33 05/09/22 20:50 05/10/22 06:00 Temperature 96.7 F L 97.4 F Pulse Rate 92 88 97 Respiratory Rate 20 18 Blood Pressure 125/80 113/69 123/78 Pulse Oximetry 95 98 Oxygen Delivery Method Room Air Room Air BMI result Body Mass Index 35.4 Labs Results: 04/30/22 18:26 05/02/22 08:09 Imaging Radiology Impressions: ITS Impressions Chest X-Ray 04/30/22 17:52 IMPRESSION: No acute cardiopulmonary process. Medications Medications Current Medications Acetaminophen (Acetaminophen 325 Mg Tablet) 650 mg PO Q6H PRN PRN Reason: Headache/Pain Mild Scale (1-3) Last Admin: 05/04/22 12:02 Dose: 650 mg Acetaminophen/Butalbital/Caffeine (Butalb/Acetamin/Caff 50/325/40 Tablet) 1 tab PO Q12H PRN PRN Reason: migraine Last Admin: 05/10/22 16:34 Dose: 1 tab Al Hydroxide/Mg Hydroxide (Magnesium Hydrox/Alum Hydrox 30 Ml Oral.Susp) 30 ml PO Q6H PRN PRN Reason: Heartburn/Nausea Bictegravir/Emtricitabine/Tenofovir (Bictegrav/Emtricit/Tenofov Ala Tablet) 1 tab PO DAILY [facility] Last Admin: 05/10/22 08:59 Dose: 1 tab Bupropion HCl (Bupropion Hcl Xl 150 Mg Tab.Er.24h) 150 mg PO 0900,1300 [facility] Last Admin: 05/10/22 12:02 Dose: 150 mg Chlorpromazine HCl (Chlorpromazine Hcl 25 Mg Tablet) 50 mg PO TID PRN PRN Reason: auditory perceptual alterations Last Admin: 05/10/22 15:06 Dose: 50 mg Clonidine HCl (Clonidine Hcl 0.1 Mg Tablet) 0.1 mg PO BID PRN; Protocol PRN Reason: anxiety Last Admin: 05/10/22 15:06 Dose: 0.1 mg Gabapentin (Gabapentin 400 Mg Capsule) 800 mg PO TID [facility] Last Admin: 05/10/22 15:02 Dose: 800 mg Hydroxyzine HCl (Hydroxyzine Hcl 25 Mg Tablet) 25 mg PO BEDTIME PRN PRN Reason: Anxiety Last Admin: 05/02/22 13:48 Dose: 25 mg Levetiracetam (Levetiracetam 500 Mg Tablet) 500 mg PO BID [facility] Last Admin: 05/10/22 08:59 Dose: 500 mg Magnesium Hydroxide (Milk Of Magnesia 30 Ml Oral.Susp) 30 ml PO DAILY PRN PRN Reason: Constipation Methadone HCl (Methadone Hcl 20 Mg/2 Ml Oral.Conc) 135 mg PO DAILY [facility] Last Admin: 05/10/22 09:04 Dose: 135 mg Multivitamins/Vitamin C (Multivitamin Tablet) 1 tab PO DAILY [facility] Last Admin: 05/10/22 08:59 Dose: 1 tab Nicotine (Nicotine 21 Mg Patch.Td24) 21 mg TRANSDERMA DAILY [facility] Last Admin: 05/10/22 09:01 Dose: Not Given Non-Formulary Medication (Lumateperone [Caplyta]) 1 cap PO BEDTIME [facility] Non-Formulary Medication (Sofosbuvir-Velpatasvir) 1 tab PO DAILY [facility] Olanzapine (Olanzapine 5 Mg Tablet) 5 mg PO DAILY [facility] Last Admin: 05/10/22 08:58 Dose: 5 mg Olanzapine (Olanzapine 10 Mg Tablet) 20 mg PO BEDTIME [facility] Last Admin: 05/09/22 20:52 Dose: 20 mg Prazosin HCl (Prazosin Hcl 1 Mg Capsule) 2 mg PO BID [facility]; Protocol Last Admin: 05/10/22 08:59 Dose: 2 mg Prazosin HCl (Prazosin Hcl 1 Mg Capsule) 4 mg PO BEDTIME [facility]; Protocol Last Admin: 05/09/22 20:53 Dose: 4 mg Sertraline HCl (Sertraline Hcl 100 Mg Tablet) 200 mg PO DAILY [facility] Last Admin: 05/10/22 08:59 Dose: 200 mg Sumatriptan Succinate (Sumatriptan Succinate 50 Mg Tablet) 50 mg PO DAILY MRX1 PRN PRN Reason: Migraine Headache Topiramate (Topiramate 25 Mg Tablet) 25 mg PO BID [facility] Last Admin: 05/10/22 08:59 Dose: 25 mg Trazodone HCl (Trazodone Hcl 50 Mg Tablet) 50 mg PO BEDTIME PRN PRN Reason: Insomnia Allergies Allergies Allergy/AdvReac Type Severity Reaction Status Date / Time Penicillins Allergy Rash Verified 04/30/22 18:36 Assessment & Plan Assessment & Plan (1) Severe recurrent major depression w/psychotic features, mood-congruent: Status: Acute Code(s): F33.3 - Major depressive disorder, recurrent, severe with psychotic symptoms (2) Opioid use disorder: Status: Acute Code(s): F11.90 - Opioid use, unspecified, uncomplicated Plan 46 yo male, hx of recurrent major depression with psychosis, opiate use disorder, currently on Methadone. Recent completion of [facility] program with transfer to [facility] program where he found that peers were selling drugs, using drugs and not living in a sober environment. This, along with an argument with his family in [place] precipitated a relapse, increase in command voices to hang himself. Plan: Medications reconciled with [facility]. Continue current regime TSH B12 Folate A1C 05/03/22: Increase HS Prazosin to 4 mg Risperdal 0.5 mg HS Discharge planning. 05/04/22 Discontinue Risperdal Increase Olanzapine to 10 mg at HS 05/05/22 Increase HS Olanzapine to 15 mg Topiramate 25 mg daily-mood and headache mgt. 05/06/22 Increase Sertraline to 200 mg daily Request for room change with a room-mate who does not require 1-1 as it appears to be activating PTSD Sx. 05/07 continue current medications. 05/08 increase topamax to 25 mg BID targeting headaches 05/09 Increase Zyprexa to 20 mg HS. 05/10/22: Chlorpromazine 50 mg tid prn auditory perceptual alterations Neurological consult-migraine mgt-requiring fiorcet prn I spent minutes with the patient and/or on the patient floor today, greater than?50% of which was spent counseling/coordinating care. Patient educated on: medication risk/benefits and therapeutic strategies Informed Consent: understands and further education needed Reason for contiued inpatient stay Substantial Risk for: harm to self, inability to function, rapid decompensation and med/psych decompensation
[2022-05-10] MEDS: OLANZapine 10 MG TABLET 20 MG PO (19:47)
[2022-05-10] MEDS: Prazosin HCL 1 MG CAPSULE 4 MG PO (19:49)
[2022-05-10 19:50] VITALS: BP 117/75; PULSE 102; TEMP 36.5; O2SAT 96
[2022-05-11] MEDS: methADONE HCl 20 MG/2 ML ORAL.CONC 135 MG PO (07:56)
[2022-05-11] MEDS: OLANZapine 5 MG TABLET PO (07:58)
[2022-05-11] MEDS: Bictegrav/Emtricit/Tenofov Ala TABLET 1 TAB PO (07:58)
[2022-05-11] MEDS: Gabapentin 400 MG CAPSULE 800 MG PO ×3 (07:58→20:25)
[2022-05-11] MEDS: Topiramate 25 MG TABLET PO ×2 (07:59→20:24)
[2022-05-11] MEDS: Sertraline HCL 100 MG TABLET 200 MG PO (07:59)
[2022-05-11] MEDS: Prazosin HCL 1 MG CAPSULE 2 MG PO ×2 (07:59→20:24)
[2022-05-11] MEDS: levETIRAcetam 500 MG TABLET PO ×2 (07:59→20:24)
[2022-05-11] MEDS: buPROPion HCl XL 150 MG TAB.ER.24H PO ×2 (07:59→12:12)
[2022-05-11] MEDS: Multivitamin TABLET 1 TAB PO (07:59)
[2022-05-11 08:31] VITALS: BP 132/80; PULSE 91; TEMP 36.3; O2SAT 96
[2022-05-11] MEDS: Butalb/Acetamin/Caff 50/325/40 TABLET 1 TAB PO ×2 (08:32→20:25)
[2022-05-11 12:36] VITALS: BP 117/80; PULSE 109
[2022-05-11] MEDS: cloNIDine HCL 0.1 MG TABLET PO (12:36)
[2022-05-11] MEDS: SUMAtriptan succinate 50 MG TABLET PO (15:07)
--- NOTE | 2022-05-11 15:59 | HO.PSYCHPN ---
Subjective Subjective Date of Service: 05/11/22 Reason For Visit: depression Subjective Notes: Conditional Voluntary Healthcare Proxy: No Guardianship: No Medical Problems Affecting Mental Status: No Interim History: Connor reports no new symptoms of distress today. He is hopeful regarding placement. Discussed not being able to return to the [place] area due to past alliances which were not helpful for him, causing him to serve time in incarceration. Medication Compliance: Yes Side effects from medications: No Attending Groups: Intermittent Review of Systems Acute medical concerns: No Medical Review of Systems: unchanged Review of Systems Constitutional: Reports headache(s) Reports headache(s) Reports headache(s) Psychiatric: Reports anxiety, Reports depression, Reports auditory hallucinations, Reports paranoia and Reports suicidal ideation (denies) Mental Status Exam Mental Status Exam Patient Appearance: Appropriate Patient Orientation: Person, Place, Time and Situation Level of Consciousness: Alert Patient Behavior: Talkative, Cooperative and Good Eye Contact Mood Description: Depressed Affect Description: Flat Patient Cognition Impaired: No Ability to Follow Directions: Good Speech Pattern: Spontaneous Speech and Soft-Spoken Memory Description: Intact Hallucinations: Auditory Delusions: Paranoid Ideation Perceptual Disturbances: Depersonalization and Derealization Thought Process: Rumination Thought Content: positive for Perseveration and positive for Suicidal Ideation (denies) Depressive Symptoms: Difficulty Sleeping, Thoughts of /Suicide (denies), Low Self Esteem and Difficulty Concentrating Judgement: Fair Diagnostics Vital Signs (24Hr): Vital Signs - 24 hr 05/10/22 19:50 05/11/22 08:31 05/11/22 12:36 Temperature 97.7 F 97.3 F Pulse Rate 102 H 91 109 H Blood Pressure 117/75 132/80 117/80 Pulse Oximetry 96 96 Oxygen Delivery Method Room Air Room Air BMI result Body Mass Index 35.4 Labs Results: 04/30/22 18:26 05/02/22 08:09 Imaging Radiology Impressions: ITS Impressions Chest X-Ray 04/30/22 17:52 IMPRESSION: No acute cardiopulmonary process. Medications Medications Current Medications Acetaminophen (Acetaminophen 325 Mg Tablet) 650 mg PO Q6H PRN PRN Reason: Headache/Pain Mild Scale (1-3) Last Admin: 05/04/22 12:02 Dose: 650 mg Acetaminophen/Butalbital/Caffeine (Butalb/Acetamin/Caff 50/325/40 Tablet) 1 tab PO Q12H PRN PRN Reason: migraine Last Admin: 05/11/22 08:32 Dose: 1 tab Al Hydroxide/Mg Hydroxide (Magnesium Hydrox/Alum Hydrox 30 Ml Oral.Susp) 30 ml PO Q6H PRN PRN Reason: Heartburn/Nausea Bictegravir/Emtricitabine/Tenofovir (Bictegrav/Emtricit/Tenofov Ala Tablet) 1 tab PO DAILY [facility] Last Admin: 05/11/22 07:58 Dose: 1 tab Bupropion HCl (Bupropion Hcl Xl 150 Mg Tab.Er.24h) 150 mg PO 0900,1300 [facility] Last Admin: 05/11/22 12:12 Dose: 150 mg Chlorpromazine HCl (Chlorpromazine Hcl 25 Mg Tablet) 50 mg PO TID PRN PRN Reason: auditory perceptual alterations Last Admin: 05/10/22 15:06 Dose: 50 mg Clonidine HCl (Clonidine Hcl 0.1 Mg Tablet) 0.1 mg PO BID PRN; Protocol PRN Reason: anxiety Last Admin: 05/11/22 12:36 Dose: 0.1 mg Gabapentin (Gabapentin 400 Mg Capsule) 800 mg PO TID [facility] Last Admin: 05/11/22 14:17 Dose: 800 mg Hydroxyzine HCl (Hydroxyzine Hcl 25 Mg Tablet) 25 mg PO BEDTIME PRN PRN Reason: Anxiety Last Admin: 05/02/22 13:48 Dose: 25 mg Levetiracetam (Levetiracetam 500 Mg Tablet) 500 mg PO BID [facility] Last Admin: 05/11/22 07:59 Dose: 500 mg Magnesium Hydroxide (Milk Of Magnesia 30 Ml Oral.Susp) 30 ml PO DAILY PRN PRN Reason: Constipation Methadone HCl (Methadone Hcl 20 Mg/2 Ml Oral.Conc) 135 mg PO DAILY [facility] Last Admin: 05/11/22 07:56 Dose: 135 mg Multivitamins/Vitamin C (Multivitamin Tablet) 1 tab PO DAILY [facility] Last Admin: 05/11/22 07:59 Dose: 1 tab Nicotine (Nicotine 21 Mg Patch.Td24) 21 mg TRANSDERMA DAILY [facility] Last Admin: 05/11/22 07:59 Dose: Not Given Non-Formulary Medication (Lumateperone [Caplyta]) 1 cap PO BEDTIME [facility] Non-Formulary Medication (Sofosbuvir-Velpatasvir) 1 tab PO DAILY [facility] Olanzapine (Olanzapine 5 Mg Tablet) 5 mg PO DAILY [facility] Last Admin: 05/11/22 07:58 Dose: 5 mg Olanzapine (Olanzapine 10 Mg Tablet) 20 mg PO BEDTIME [facility] Last Admin: 05/10/22 19:47 Dose: 20 mg Prazosin HCl (Prazosin Hcl 1 Mg Capsule) 2 mg PO BID [facility]; Protocol Last Admin: 05/11/22 07:59 Dose: 2 mg Prazosin HCl (Prazosin Hcl 1 Mg Capsule) 4 mg PO BEDTIME [facility]; Protocol Last Admin: 05/10/22 19:49 Dose: 4 mg Sertraline HCl (Sertraline Hcl 100 Mg Tablet) 200 mg PO DAILY [facility] Last Admin: 05/11/22 07:59 Dose: 200 mg Sumatriptan Succinate (Sumatriptan Succinate 50 Mg Tablet) 50 mg PO DAILY MRX1 PRN PRN Reason: Migraine Headache Last Admin: 05/11/22 15:07 Dose: 50 mg Topiramate (Topiramate 25 Mg Tablet) 25 mg PO BID [facility] Last Admin: 05/11/22 07:59 Dose: 25 mg Trazodone HCl (Trazodone Hcl 50 Mg Tablet) 50 mg PO BEDTIME PRN PRN Reason: Insomnia Allergies Allergies Allergy/AdvReac Type Severity Reaction Status Date / Time Penicillins Allergy Rash Verified 04/30/22 18:36 Assessment & Plan Assessment & Plan (1) Severe recurrent major depression w/psychotic features, mood-congruent: Status: Acute Code(s): F33.3 - Major depressive disorder, recurrent, severe with psychotic symptoms (2) Opioid use disorder: Status: Acute Code(s): F11.90 - Opioid use, unspecified, uncomplicated Plan 46 yo male, hx of recurrent major depression with psychosis, opiate use disorder, currently on Methadone. Recent completion of [facility] program with transfer to [facility] program where he found that peers were selling drugs, using drugs and not living in a sober environment. This, along with an argument with his family in [place] precipitated a relapse, increase in command voices to hang himself. Plan: Medications reconciled with [facility]. Continue current regime TSH B12 Folate A1C 05/03/22: Increase HS Prazosin to 4 mg Risperdal 0.5 mg HS Discharge planning. 05/04/22 Discontinue Risperdal Increase Olanzapine to 10 mg at HS 05/05/22 Increase HS Olanzapine to 15 mg Topiramate 25 mg daily-mood and headache mgt. 05/06/22 Increase Sertraline to 200 mg daily Request for room change with a room-mate who does not require 1-1 as it appears to be activating PTSD Sx. 05/07 continue current medications. 05/08 increase topamax to 25 mg BID targeting headaches 05/09 Increase Zyprexa to 20 mg HS. 05/11/22- Continue current regime. Pt is on a waiting list for [facility] and a [facility] program pending He is a risk to discharge without the structure of a program given his history of use, depressive sx, psychosis sx I spent minutes with the patient and/or on the patient floor today, greater than?50% of which was spent counseling/coordinating care. Patient educated on: therapeutic strategies Informed Consent: understands and further education needed Reason for contiued inpatient stay Substantial Risk for: harm to self, inability to function and rapid decompensation
[2022-05-11 17:30] VITALS: BP 112/73; PULSE 98; TEMP 36.6; O2SAT 97
--- NOTE | 2022-05-11 17:51 | P.CNNE_ITS ---
History of Present Illness Data of Consult Service Date: 05/11/22 Primary Care Provider: None Physician HPI Reason for consult: Headaches 46yo male, history of recurrent major depression with psychosis and opiate use disorder, currently on Methadone, presents with reports of an increase in depression with command auditory hallucinations telling him to suicide with a plan to hang himself. He reports an attempt to hang himself in 2020 and was found before he acted. He reports relapse over the past 72 hours and non- compliance with medications. Reports he is from the [facility] and had been on probation for substance use. When he relapsed, his parole hearing officer had him incarcerated for ~4 months, and talked with him about leaving [place] as he had too many connections threatening his sobriety. He left incarceration and attended the [employer] program, graduating recently and was placed after graduat ion [facility] for 30 days.? I was asked to see him in consultation regarding migraine headaches that started at age 15. He averages 6 migraines a month that can last for a whole day if he does not take Fioricet. 2 tablets of Fioricet usually get rid of the headache within a couple of hours. If the headache is untreated it becomes quite disabli ng and severe with nausea vomiting photophobia and sonophobia. He has a history of migraines in his mother who is Review of Systems Review of Systems: Constitutional: No Fever, No Chills ENT/Mouth: No sore throat, No Rhinorrhea, No Swallowing Difficulty Eyes: No Eye Pain, No Swelling, No Redness Cardiovascular: + Chest Pain, No SOB, No Orthopnea, No Edema Respiratory: No Cough, No Sputum, No Wheezing, No dyspnea Gastrointestinal: No Nausea, No Vomiting, No Diarrhea, No abdominal Pain Genitourinary: No Dysuria, No Urinary Frequency, No Hematuria Musculoskeletal: No joint pain, No Myalgias Skin: No Skin Lesions, No rash Neuro: No Weakness, No Numbness, No Dizziness, + Headache Psych: + Anxiety/Panic, +Depression, +SI, No HI, No AH, NO VH Heme/Lymph: No Bruising, No Lymphadenopathy Endocrine: No Polyuria, No Polydipsia Yes all other systems are reviewed and are negative Neurologic: Reports behavioral changes Psychiatric: Psychiatric: Reports abnormal sleep pattern, Reports anxiety, Reports behavioral changes, Reports change in appetite, Reports depression, Reports difficulty concentrating, Reports auditory hallucinations, Reports hopelessness, Reports irritability, Reports anhedonia, Reports mood swings, Reports visual hallucinations, Reports hallucinations and Reports suicidal ideation (denies) [facility] Social History Social History Alcohol intake: former Patient Tobacco Use Status: Current everyday Tobacco user Tobacco use type: Cigarette Cigarette Packs Per Day: 1 Cigarettes Per Day: 20.0 Smoked in Last 30 Days: Yes e-Cigarette/Vaping Use: Never Used Patient Interested in Nicotine Replacement: Yes Patient Given Instructions on How to Stop Smoking: Yes Date Education Initiated: 05/01/22 Second Hand Smoke Exposure: No Use of substances other than those prescribed or required for medical reasons: Yes Substance Use Type: Heroin and Opiates Substance Use Frequency: Recent Binge Last Used Substance: Just Prior to Admission Currently Displaying Signs/Symptoms of Drug Intoxication Withdrawal: No Any prior treatment program specific to substance use: Yes Have you been hit, kicked, punched, or otherwise hurt by someone within the past year? If so, by whom?: No Do you feel safe in your current relationship?: Yes Is there a partner from a previous relationship who is making you feel unsafe now?: No Are you made to feel afraid or neglected: No Advance Directives: No Advance Directives Information Provided: No Do you have thoughts of harming others: None Do you have a plan to hurt others: No Plan Recently lost weight without trying: No Eating poorly because of decreased appetite: No Nutrition Risks: No Nutritional Risk Poor oral hygiene: No service: No Sexual orientation: Straight/Heterosexual Meds Allergies Allergy/AdvReac Type Severity Reaction Status Date / Time Penicillins Allergy Rash Verified 04/30/22 18:36 Active Medications: Current Medications Acetaminophen (Acetaminophen 325 Mg Tablet) 650 mg PO Q6H PRN PRN Reason: Headache/Pain Mild Scale (1-3) Last Admin: 05/04/22 12:02 Dose: 650 mg Acetaminophen/Butalbital/Caffeine (Butalb/Acetamin/Caff 50/325/40 Tablet) 1 tab PO Q12H PRN PRN Reason: migraine Last Admin: 05/11/22 08:32 Dose: 1 tab Al Hydroxide/Mg Hydroxide (Magnesium Hydrox/Alum Hydrox 30 Ml Oral.Susp) 30 ml PO Q6H PRN PRN Reason: Heartburn/Nausea Bictegravir/Emtricitabine/Tenofovir (Bictegrav/Emtricit/Tenofov Ala Tablet) 1 tab PO DAILY [facility]ANG Last Admin: 05/11/22 07:58 Dose: 1 tab Bupropion HCl (Bupropion Hcl Xl 150 Mg Tab.Er.24h) 150 mg PO 0900,1300 LANG Last Admin: 05/11/22 12:12 Dose: 150 mg Chlorpromazine HCl (Chlorpromazine Hcl 25 Mg Tablet) 50 mg PO TID PRN PRN Reason: auditory perceptual alterations Last Admin: 05/10/22 15:06 Dose: 50 mg Clonidine HCl (Clonidine Hcl 0.1 Mg Tablet) 0.1 mg PO BID PRN; Protocol PRN Reason: anxiety Last Admin: 05/11/22 12:36 Dose: 0.1 mg Gabapentin (Gabapentin 400 Mg Capsule) 800 mg PO TID LANG Last Admin: 05/11/22 14:17 Dose: 800 mg Hydroxyzine HCl (Hydroxyzine Hcl 25 Mg Tablet) 25 mg PO BEDTIME PRN PRN Reason: Anxiety Last Admin: 05/02/22 13:48 Dose: 25 mg Levetiracetam (Levetiracetam 500 Mg Tablet) 500 mg PO BID LANG Last Admin: 05/11/22 07:59 Dose: 500 mg Magnesium Hydroxide (Milk Of Magnesia 30 Ml Oral.Susp) 30 ml PO DAILY PRN PRN Reason: Constipation Methadone HCl (Methadone Hcl 20 Mg/2 Ml Oral.Conc) 135 mg PO DAILY [facility]ANG Last Admin: 05/11/22 07:56 Dose: 135 mg Multivitamins/Vitamin C (Multivitamin Tablet) 1 tab PO DAILY [facility]ANG Last Admin: 05/11/22 07:59 Dose: 1 tab Nicotine (Nicotine 21 Mg Patch.Td24) 21 mg TRANSDERMA DAILY [facility] Last Admin: 05/11/22 07:59 Dose: Not Given Non-Formulary Medication (Lumateperone [Caplyta]) 1 cap PO BEDTIME LANG Non-Formulary Medication (Sofosbuvir-Velpatasvir) 1 tab PO DAILY [facility]ANG Olanzapine (Olanzapine 5 Mg Tablet) 5 mg PO DAILY LANG Last Admin: 05/11/22 07:58 Dose: 5 mg Olanzapine (Olanzapine 10 Mg Tablet) 20 mg PO BEDTIME LANG Last Admin: 05/10/22 19:47 Dose: 20 mg Prazosin HCl (Prazosin Hcl 1 Mg Capsule) 2 mg PO BID LANG; Protocol Last Admin: 05/11/22 07:59 Dose: 2 mg Prazosin HCl (Prazosin Hcl 1 Mg Capsule) 4 mg PO BEDTIME LANG; Protocol Last Admin: 05/10/22 19:49 Dose: 4 mg Sertraline HCl (Sertraline Hcl 100 Mg Tablet) 200 mg PO DAILY LANG Last Admin: 05/11/22 07:59 Dose: 200 mg Sumatriptan Succinate (Sumatriptan Succinate 50 Mg Tablet) 50 mg PO DAILY MRX1 PRN PRN Reason: Migraine Headache Last Admin: 05/11/22 15:07 Dose: 50 mg Topiramate (Topiramate 25 Mg Tablet) 25 mg PO BID [facility] Last Admin: 05/11/22 07:59 Dose: 25 mg Trazodone HCl (Trazodone Hcl 50 Mg Tablet) 50 mg PO BEDTIME PRN PRN Reason: Insomnia Home Medications Medication Instructions Recorded Confirmed Last Taken Type bupropion HCl 150 mg 24 hr tablet, 1 tab PO QAM depressive disorder 05/01/22 05/01/22 04/30/22 History extended release (Wellbutrin XL) clonidine HCl 0.1 mg tablet 1 tab PO BID PRN anxiety 05/01/22 05/01/22 04/30/22 History gabapentin 800 mg tablet 1 tab PO TID 05/01/22 05/01/22 04/30/22 History levetiracetam 500 mg tablet 1 tab PO BID 05/01/22 05/01/22 04/30/22 History lumateperone 42 mg capsule 1 cap PO BEDTIME 05/01/22 05/01/22 04/30/22 History (Caplyta) methadone 10 mg/mL oral syringe 135 mg PO DAILY 05/01/22 05/01/22 04/28/22 06:20 History (FOR ORAL USE ONLY) olanzapine 5 mg tablet 2.5 mg PO BID 05/01/22 05/01/22 04/30/22 History prazosin 1 mg capsule 1 mg PO BEDTIME 05/01/22 05/01/22 04/30/22 History prazosin 2 mg capsule 1 cap PO BID 05/01/22 05/01/22 04/30/22 History sertraline 100 mg tablet (Zoloft) 1.5 tab PO DAILY 05/01/22 05/01/22 04/30/22 History sofosbuvir 400 mg-velpatasvir 100 1 tab PO DAILY 05/01/22 05/01/22 04/30/22 History mg tablet Physical Exam Vital Signs: Vital Signs: Last Vital Signs Temp 97.8 F 05/11/22 17:30 Pulse 98 05/11/22 17:30 Resp 18 05/10/22 06:00 BP 112/73 05/11/22 17:30 Pulse Ox 97 05/11/22 17:30 O2 Del Method 05/11/22 17:30 BMI result Body Mass Index 35.4 Neuro: Other: Is alert and oriented with normal intellectual functions. Cranial nerves II through XII are normal. Muscle tone and strength normal in all 4 extremities. Deep tendon reflexes symmetrical plantar response are flexor. Neck is supple Results Labs CBC & Chem 7: 04/30/22 18:26 05/02/22 08:09 Assessment and Plan (1) Migraine without aura: Status: Acute Is currently on topiramate for migraine prophylaxis. I would increase the dose to 50 mg twice a day. He should keep a log of his migraines. For abortive therapy Fioricet 2 tablets at onset of migraine seems to work best for him and he may continue that with her monthly limit of 15 pills/month. (2) Severe recurrent major depression w/psychotic features, mood-congruent: Status: Acute (3) Opioid use disorder: Status: Acute Plan 46 yo male, hx of recurrent major depression with psychosis, opiate use disorder, currently on Methadone. Recent completion of [facility] with transfer to [facility] sober living program where he found that peers were selling drugs, using drugs and not living in a sober environment. This, along with an argument with his family in [place] precipitated a relapse, increase in command voices to hang himself. Plan: Medications reconciled with [facility]. Continue current regime TSH B12 Folate A1C 05/03/22: Increase HS Prazosin to 4 mg Risperdal 0.5 mg HS Discharge planning. 05/04/22 Discontinue Risperdal Increase Olanzapine to 10 mg at HS 05/05/22 Increase HS Olanzapine to 15 mg Topiramate 25 mg daily-mood and headache mgt. 05/06/22 Increase Sertraline to 200 mg daily Request for room change with a room-mate who does not require 1-1 as it appears to be activating PTSD Sx. 05/07 continue current medications. 05/08 increase topamax to 25 mg BID targeting headaches 05/09 Increase Zyprexa to 20 mg HS. Procedures Date of Service Date of Service: 05/11/22
[2022-05-11] MEDS: OLANZapine 10 MG TABLET 20 MG PO (20:24)
[2022-05-11] MEDS: chlorproMAZINE HCl 25 MG TABLET 50 MG PO (20:24)
[2022-05-11 20:25] VITALS: BP 125/81; PULSE 97
[2022-05-11] MEDS: Prazosin HCL 1 MG CAPSULE 4 MG PO (20:25)
[2022-05-12 06:00] VITALS: BP 134/73; PULSE 116; TEMP 36.9; O2SAT 97
[2022-05-12] MEDS: methADONE HCl 20 MG/2 ML ORAL.CONC 135 MG PO (08:08)
[2022-05-12] MEDS: Topiramate 25 MG TABLET PO ×2 (08:09→19:53)
[2022-05-12] MEDS: Gabapentin 400 MG CAPSULE 800 MG PO ×3 (08:09→19:52)
[2022-05-12] MEDS: Multivitamin TABLET 1 TAB PO (08:09)
[2022-05-12] MEDS: levETIRAcetam 500 MG TABLET PO ×2 (08:09→19:53)
[2022-05-12] MEDS: buPROPion HCl XL 150 MG TAB.ER.24H PO ×2 (08:10→12:17)
[2022-05-12] MEDS: Sertraline HCL 100 MG TABLET 200 MG PO (08:10)
[2022-05-12] MEDS: SUMAtriptan succinate 50 MG TABLET PO (08:10)
[2022-05-12] MEDS: Prazosin HCL 1 MG CAPSULE 2 MG PO ×2 (08:10→19:58)
[2022-05-12] MEDS: Bictegrav/Emtricit/Tenofov Ala TABLET 1 TAB PO (08:11)
[2022-05-12] MEDS: OLANZapine 5 MG TABLET PO (08:11)
--- NOTE | 2022-05-12 17:27 | P.PNPSI_ITS ---
Subjective Subjective Date of Service: 05/12/22 Reason For Visit: depression Subjective Notes: Conditional Voluntary Healthcare Proxy: No Guardianship: No Medical Problems Affecting Mental Status: No Interim History: Connor is reporting some decrease in sleep, some voices and at one point during the night urinating in his bed, waking up and seeing red on the wall. Review of all medications. Pt is asking for an increase in medications, however, we discussed that regime has been titrated without much relief. Discussed symptoms of anxiety, PTSD and alternative methods of intervention instead of medications. Review of neuro eval for migraines, pt will consider recommended Topiramate increase. Finds Fiorcet to be most helpful. Medication Compliance: Yes Side effects from medications: No Attending Groups: Intermittent Review of Systems Acute medical concerns: No Medical Review of Systems: unchanged Review of Systems Psychiatric: Reports abnormal sleep pattern, Reports anxiety, Reports difficulty concentrating, Reports auditory hallucinations, Reports paranoia and Reports suicidal ideation (denies) Mental Status Exam Mental Status Exam Patient Appearance: Appropriate Patient Orientation: Person, Place, Time and Situation Level of Consciousness: Alert Patient Behavior: Talkative, Cooperative and Good Eye Contact Mood Description: Depressed Affect Description: Flat Patient Cognition Impaired: No Ability to Follow Directions: Good Speech Pattern: Spontaneous Speech and Soft-Spoken Memory Description: Intact Hallucinations: Auditory and Visual Delusions: Paranoid Ideation Perceptual Disturbances: Depersonalization and Derealization Thought Process: Rumination Thought Content: positive for Perseveration and positive for Suicidal Ideation (denies) Depressive Symptoms: Difficulty Sleeping, Thoughts of /Suicide (denies), Low Self Esteem and Difficulty Concentrating Judgement: Fair Diagnostics Vital Signs (24Hr): Vital Signs - 24 hr 05/11/22 17:30 05/11/22 20:25 05/12/22 06:00 Temperature 97.8 F 98.4 F Pulse Rate 98 97 116 H Blood Pressure 112/73 125/81 134/73 Pulse Oximetry 97 97 Oxygen Delivery Method Room Air Room Air BMI result Body Mass Index 35.4 Labs Results: 04/30/22 18:26 05/02/22 08:09 Imaging Radiology Impressions: ITS Impressions Chest X-Ray 04/30/22 17:52 IMPRESSION: No acute cardiopulmonary process. Medications Medications Current Medications Acetaminophen (Acetaminophen 325 Mg Tablet) 650 mg PO Q6H PRN PRN Reason: Headache/Pain Mild Scale (1-3) Last Admin: 05/04/22 12:02 Dose: 650 mg Acetaminophen/Butalbital/Caffeine (Butalb/Acetamin/Caff 50/325/40 Tablet) 1 tab PO Q12H PRN PRN Reason: migraine Last Admin: 05/11/22 20:25 Dose: 1 tab Al Hydroxide/Mg Hydroxide (Magnesium Hydrox/Alum Hydrox 30 Ml Oral.Susp) 30 ml PO Q6H PRN PRN Reason: Heartburn/Nausea Bictegravir/Emtricitabine/Tenofovir (Bictegrav/Emtricit/Tenofov Ala Tablet) 1 tab PO DAILY [facility] Last Admin: 05/12/22 08:11 Dose: 1 tab Bupropion HCl (Bupropion Hcl Xl 150 Mg Tab.Er.24h) 150 mg PO 0900,1300 [facility] Last Admin: 05/12/22 12:17 Dose: 150 mg Chlorpromazine HCl (Chlorpromazine Hcl 25 Mg Tablet) 50 mg PO TID PRN PRN Reason: auditory perceptual alterations Last Admin: 05/11/22 20:24 Dose: 50 mg Clonidine HCl (Clonidine Hcl 0.1 Mg Tablet) 0.1 mg PO BID PRN; Protocol PRN Reason: anxiety Last Admin: 05/11/22 12:36 Dose: 0.1 mg Gabapentin (Gabapentin 400 Mg Capsule) 800 mg PO TID [facility] Last Admin: 05/12/22 14:10 Dose: 800 mg Hydroxyzine HCl (Hydroxyzine Hcl 25 Mg Tablet) 25 mg PO BEDTIME PRN PRN Reason: Anxiety Last Admin: 05/02/22 13:48 Dose: 25 mg Levetiracetam (Levetiracetam 500 Mg Tablet) 500 mg PO BID [facility] Last Admin: 05/12/22 08:09 Dose: 500 mg Magnesium Hydroxide (Milk Of Magnesia 30 Ml Oral.Susp) 30 ml PO DAILY PRN PRN Reason: Constipation Methadone HCl (Methadone Hcl 20 Mg/2 Ml Oral.Conc) 135 mg PO DAILY [facility] Last Admin: 05/12/22 08:08 Dose: 135 mg Multivitamins/Vitamin C (Multivitamin Tablet) 1 tab PO DAILY [facility] Last Admin: 05/12/22 08:09 Dose: 1 tab Nicotine (Nicotine 21 Mg Patch.Td24) 21 mg TRANSDERMA DAILY [facility] Last Admin: 05/12/22 08:11 Dose: Not Given Non-Formulary Medication (Lumateperone [Caplyta]) 1 cap PO BEDTIME [facility]ANG Non-Formulary Medication (Sofosbuvir-Velpatasvir) 1 tab PO DAILY [facility] Olanzapine (Olanzapine 5 Mg Tablet) 5 mg PO DAILY [facility] Last Admin: 05/12/22 08:11 Dose: 5 mg Olanzapine (Olanzapine 10 Mg Tablet) 20 mg PO BEDTIME [facility] Last Admin: 05/11/22 20:24 Dose: 20 mg Prazosin HCl (Prazosin Hcl 1 Mg Capsule) 2 mg PO BID [facility]ANG; Protocol Last Admin: 05/12/22 08:10 Dose: 2 mg Prazosin HCl (Prazosin Hcl 1 Mg Capsule) 4 mg PO BEDTIME LANG; Protocol Last Admin: 05/11/22 20:25 Dose: 4 mg Sertraline HCl (Sertraline Hcl 100 Mg Tablet) 200 mg PO DAILY [facility] Last Admin: 05/12/22 08:10 Dose: 200 mg Sumatriptan Succinate (Sumatriptan Succinate 50 Mg Tablet) 50 mg PO DAILY MRX1 PRN PRN Reason: Migraine Headache Last Admin: 05/12/22 08:10 Dose: 50 mg Topiramate (Topiramate 25 Mg Tablet) 25 mg PO BID [facility] Last Admin: 05/12/22 08:09 Dose: 25 mg Trazodone HCl (Trazodone Hcl 50 Mg Tablet) 50 mg PO BEDTIME PRN PRN Reason: Insomnia Allergies Allergies Allergy/AdvReac Type Severity Reaction Status Date / Time Penicillins Allergy Rash Verified 04/30/22 18:36 Assessment & Plan Assessment & Plan (1) Migraine without aura: Status: Acute Code(s): G43.009 - Migraine without aura, not intractable, without status migrainosus Assessment and Plan: Is currently on topiramate for migraine prophylaxis. I would increase the dose to 50 mg twice a day. He should keep a log of his migraines. For abortive therapy Fioricet 2 tablets at onset of migraine seems to work best for him and he may continue that with her monthly limit of 15 pills/month. (2) Severe recurrent major depression w/psychotic features, mood-congruent: Status: Acute Code(s): F33.3 - Major depressive disorder, recurrent, severe with psychotic symptoms (3) Opioid use disorder: Status: Acute Code(s): F11.90 - Opioid use, unspecified, uncomplicated Plan 46 yo male, hx of recurrent major depression with psychosis, opiate use disorder, currently on Methadone. Recent completion of [facility] with transfer to [facility] program where he found that peers were selling drugs, using drugs and not living in a sober environment. This, along with an argument with his family in [place] precipitated a relapse, increase in command voices to hang himself. Plan: Medications reconciled with [facility]. Continue current regime TSH B12 Folate A1C 05/03/22: Increase HS Prazosin to 4 mg Risperdal 0.5 mg HS Discharge planning. 05/04/22 Discontinue Risperdal Increase Olanzapine to 10 mg at HS 05/05/22 Increase HS Olanzapine to 15 mg Topiramate 25 mg daily-mood and headache mgt. 05/06/22 Increase Sertraline to 200 mg daily Request for room change with a room-mate who does not require 1-1 as it appears to be activating PTSD Sx. 05/07 continue current medications. 05/08 increase topamax to 25 mg BID targeting headaches 05/09 Increase Zyprexa to 20 mg HS. 05/12/22. Pt will consider Topiramate increase- review of neuro consult with Connor Neurological consultation much appreciated No medication changes today. Discussed with pt using coping skills to manage PTSD sx. I spent minutes with the patient and/or on the patient floor today, greater than?50% of which was spent counseling/coordinating care. Patient educated on: medication risk/benefits, therapeutic strategies and medical condition Informed Consent: understands and further education needed Reason for contiued inpatient stay Substantial Risk for: harm to self, inability to function and rapid decompensation
[2022-05-12] MEDS: Butalb/Acetamin/Caff 50/325/40 TABLET 1 TAB PO (17:30)
[2022-05-12 19:30] VITALS: BP 128/69; PULSE 108; RESP 15; TEMP 36.3; O2SAT 98
[2022-05-12] MEDS: Prazosin HCL 1 MG CAPSULE 4 MG PO (19:52)
[2022-05-12] MEDS: OLANZapine 10 MG TABLET 20 MG PO (19:53)
[2022-05-13 06:00] VITALS: PULSE 90; RESP 14; TEMP 36.5; O2SAT 97
[2022-05-13] MEDS: Butalb/Acetamin/Caff 50/325/40 TABLET 1 TAB PO ×2 (06:06→18:27)
[2022-05-13 07:00] VITALS: BMI 36.9
[2022-05-13] MEDS: methADONE HCl 20 MG/2 ML ORAL.CONC 135 MG PO (08:13)
[2022-05-13] MEDS: buPROPion HCl XL 150 MG TAB.ER.24H PO ×2 (08:16→12:24)
[2022-05-13] MEDS: OLANZapine 5 MG TABLET PO (08:17)
[2022-05-13] MEDS: Gabapentin 400 MG CAPSULE 800 MG PO ×3 (08:17→20:11)
[2022-05-13] MEDS: levETIRAcetam 500 MG TABLET PO ×2 (08:17→20:12)
[2022-05-13] MEDS: Multivitamin TABLET 1 TAB PO (08:17)
[2022-05-13] MEDS: Sertraline HCL 100 MG TABLET 200 MG PO (08:17)
[2022-05-13] MEDS: Prazosin HCL 1 MG CAPSULE 2 MG PO ×2 (08:17→20:12)
[2022-05-13] MEDS: Topiramate 25 MG TABLET PO (08:17)
[2022-05-13] MEDS: Bictegrav/Emtricit/Tenofov Ala TABLET 1 TAB PO (08:17)
[2022-05-13] MEDS: cloNIDine HCL 0.1 MG TABLET PO (08:50)
--- NOTE | 2022-05-13 18:35 | HO.PSYCHPN ---
Subjective Subjective Date of Service: 05/13/22 Reason For Visit: depression Subjective Notes: Conditional Voluntary Healthcare Proxy: No Guardianship: No Medical Problems Affecting Mental Status: No Interim History: Discussed discharge with pt next week to a long term while he awaits a program offer. Pt not wanting to go to a long term, I get into problems there but understands need to move forward. Pt continues to await interviews for placement. Approached tw later in the day, stating that he will go do a long term if needed while awaiting placement- I will make it work well . Pt asking to begin Klonopin for anxiety. Will discuss with his OP provider. Message left for Mary Ann Jiang [phone] Medication Compliance: Yes Side effects from medications: No Attending Groups: Intermittent Review of Systems Acute medical concerns: No Medical Review of Systems: unchanged Review of Systems Constitutional: Reports headache(s) (chronic migraine) Reports headache(s) (chronic migraine) Reports headache(s) (chronic migraine) Psychiatric: Reports anxiety Mental Status Exam Mental Status Exam Patient Appearance: Appropriate Patient Orientation: Person, Place, Time and Situation Level of Consciousness: Alert Patient Behavior: Talkative, Cooperative and Good Eye Contact Mood Description: Anxious Affect Description: Flat Patient Cognition Impaired: No Ability to Follow Directions: Good Speech Pattern: Spontaneous Speech and Soft-Spoken Memory Description: Intact Hallucinations: Auditory Delusions: Paranoid Ideation Perceptual Disturbances: Depersonalization and Derealization Thought Process: Rumination Thought Content: positive for Perseveration and positive for Suicidal Ideation (denies) Depressive Symptoms: Difficulty Sleeping, Thoughts of /Suicide (denies), Low Self Esteem and Difficulty Concentrating Judgement: Fair Diagnostics Vital Signs (24Hr): Vital Signs - 24 hr 05/12/22 19:30 05/13/22 06:00 Temperature 97.4 F 97.7 F Pulse Rate 108 H 90 Respiratory Rate 15 14 Blood Pressure 128/69 Pulse Oximetry 98 97 Oxygen Delivery Method Room Air Room Air BMI result Body Mass Index 36.9 Labs Results: 04/30/22 18:26 05/02/22 08:09 Imaging Radiology Impressions: ITS Impressions Chest X-Ray 04/30/22 17:52 IMPRESSION: No acute cardiopulmonary process. Medications Medications Current Medications Acetaminophen (Acetaminophen 325 Mg Tablet) 650 mg PO Q6H PRN PRN Reason: Headache/Pain Mild Scale (1-3) Last Admin: 05/04/22 12:02 Dose: 650 mg Acetaminophen/Butalbital/Caffeine (Butalb/Acetamin/Caff 50/325/40 Tablet) 1 tab PO Q12H PRN PRN Reason: migraine Last Admin: 05/13/22 18:27 Dose: 1 tab Al Hydroxide/Mg Hydroxide (Magnesium Hydrox/Alum Hydrox 30 Ml Oral.Susp) 30 ml PO Q6H PRN PRN Reason: Heartburn/Nausea Bictegravir/Emtricitabine/Tenofovir (Bictegrav/Emtricit/Tenofov Ala Tablet) 1 tab PO DAILY [facility] Last Admin: 05/13/22 08:17 Dose: 1 tab Bupropion HCl (Bupropion Hcl Xl 150 Mg Tab.Er.24h) 150 mg PO 0900,1300 [facility] Last Admin: 05/13/22 12:24 Dose: 150 mg Chlorpromazine HCl (Chlorpromazine Hcl 25 Mg Tablet) 50 mg PO TID PRN PRN Reason: auditory perceptual alterations Last Admin: 05/11/22 20:24 Dose: 50 mg Clonidine HCl (Clonidine Hcl 0.1 Mg Tablet) 0.1 mg PO BID PRN; Protocol PRN Reason: anxiety Last Admin: 05/13/22 08:50 Dose: 0.1 mg Gabapentin (Gabapentin 400 Mg Capsule) 800 mg PO TID [facility] Last Admin: 05/13/22 14:21 Dose: 800 mg Hydroxyzine HCl (Hydroxyzine Hcl 25 Mg Tablet) 25 mg PO BEDTIME PRN PRN Reason: Anxiety Last Admin: 05/02/22 13:48 Dose: 25 mg Levetiracetam (Levetiracetam 500 Mg Tablet) 500 mg PO BID [facility] Last Admin: 05/13/22 08:17 Dose: 500 mg Magnesium Hydroxide (Milk Of Magnesia 30 Ml Oral.Susp) 30 ml PO DAILY PRN PRN Reason: Constipation Methadone HCl (Methadone Hcl 20 Mg/2 Ml Oral.Conc) 135 mg PO DAILY [facility] Last Admin: 05/13/22 08:13 Dose: 135 mg Multivitamins/Vitamin C (Multivitamin Tablet) 1 tab PO DAILY [facility] Last Admin: 05/13/22 08:17 Dose: 1 tab Nicotine (Nicotine 21 Mg Patch.Td24) 21 mg TRANSDERMA DAILY [facility] Last Admin: 05/13/22 08:20 Dose: Not Given Non-Formulary Medication (Lumateperone [Caplyta]) 1 cap PO BEDTIME [facility] Non-Formulary Medication (Sofosbuvir-Velpatasvir) 1 tab PO DAILY [facility] Olanzapine (Olanzapine 5 Mg Tablet) 5 mg PO DAILY [facility] Last Admin: 05/13/22 08:17 Dose: 5 mg Olanzapine (Olanzapine 10 Mg Tablet) 20 mg PO BEDTIME [facility] Last Admin: 05/12/22 19:53 Dose: 20 mg Prazosin HCl (Prazosin Hcl 1 Mg Capsule) 2 mg PO BID [facility]; Protocol Last Admin: 05/13/22 08:17 Dose: 2 mg Prazosin HCl (Prazosin Hcl 1 Mg Capsule) 4 mg PO BEDTIME [facility]; Protocol Last Admin: 05/12/22 19:52 Dose: 4 mg Sertraline HCl (Sertraline Hcl 100 Mg Tablet) 200 mg PO DAILY [facility] Last Admin: 05/13/22 08:17 Dose: 200 mg Sumatriptan Succinate (Sumatriptan Succinate 50 Mg Tablet) 50 mg PO DAILY MRX1 PRN PRN Reason: Migraine Headache Last Admin: 05/12/22 08:10 Dose: 50 mg Topiramate (Topiramate 25 Mg Tablet) 50 mg PO BID [facility] Trazodone HCl (Trazodone Hcl 50 Mg Tablet) 50 mg PO BEDTIME PRN PRN Reason: Insomnia Allergies Allergies Allergy/AdvReac Type Severity Reaction Status Date / Time Penicillins Allergy Rash Verified 04/30/22 18:36 Assessment & Plan Assessment & Plan (1) Migraine without aura: Status: Acute Code(s): G43.009 - Migraine without aura, not intractable, without status migrainosus Assessment and Plan: Is currently on topiramate for migraine prophylaxis. I would increase the dose to 50 mg twice a day. He should keep a log of his migraines. For abortive therapy Fioricet 2 tablets at onset of migraine seems to work best for him and he may continue that with her monthly limit of 15 pills/month. (2) Severe recurrent major depression w/psychotic features, mood-congruent: Status: Acute Code(s): F33.3 - Major depressive disorder, recurrent, severe with psychotic symptoms (3) Opioid use disorder: Status: Acute Code(s): F11.90 - Opioid use, unspecified, uncomplicated Plan 46 yo male, hx of recurrent major depression with psychosis, opiate use disorder, currently on Methadone. Recent completion of [facility] program with transfer to [facility] program where he found that peers were selling drugs, using drugs and not living in a sober environment. This, along with an argument with his family in [place] precipitated a relapse, increase in command voices to hang himself. Plan: Medications reconciled with [facility]. Continue current regime TSH B12 Folate A1C 05/03/22: Increase HS Prazosin to 4 mg Risperdal 0.5 mg HS Discharge planning. 05/04/22 Discontinue Risperdal Increase Olanzapine to 10 mg at HS 05/05/22 Increase HS Olanzapine to 15 mg Topiramate 25 mg daily-mood and headache mgt. 05/06/22 Increase Sertraline to 200 mg daily Request for room change with a room-mate who does not require 1-1 as it appears to be activating PTSD Sx. 05/07 continue current medications. 05/08 increase topamax to 25 mg BID targeting headaches 05/09 Increase Zyprexa to 20 mg HS. 05/12/22. Pt will consider Topiramate increase- review of neuro consult with [facility] consultation much appreciated No medication changes today. Discussed with pt using coping skills to manage PTSD sx. 05/13/22 Continue current regime Increase Topiramate to 50 mg bid Probable discharge early next week to long term placement I spent minutes with the patient and/or on the patient floor today, greater than?50% of which was spent counseling/coordinating care. Patient educated on: therapeutic strategies Informed Consent: understands and further education needed Reason for contiued inpatient stay Substantial Risk for: inability to function and rapid decompensation
[2022-05-13 19:45] VITALS: BP 116/77; PULSE 80
[2022-05-13] MEDS: OLANZapine 10 MG TABLET 20 MG PO (20:11)
[2022-05-13] MEDS: Prazosin HCL 1 MG CAPSULE 4 MG PO (20:12)
[2022-05-13] MEDS: Topiramate 25 MG TABLET 50 MG PO (20:12)
[2022-05-14 06:00] VITALS: BP 132/78; PULSE 100; RESP 14; TEMP 36.5; O2SAT 99
[2022-05-14] MEDS: buPROPion HCl XL 150 MG TAB.ER.24H PO ×2 (08:17→12:02)
[2022-05-14] MEDS: OLANZapine 5 MG TABLET PO (08:17)
[2022-05-14] MEDS: Topiramate 25 MG TABLET 50 MG PO ×2 (08:18→19:01)
[2022-05-14] MEDS: Prazosin HCL 1 MG CAPSULE 2 MG PO ×2 (08:18→19:00)
[2022-05-14] MEDS: Bictegrav/Emtricit/Tenofov Ala TABLET 1 TAB PO (08:18)
[2022-05-14] MEDS: Sertraline HCL 100 MG TABLET 200 MG PO (08:18)
[2022-05-14] MEDS: Gabapentin 400 MG CAPSULE 800 MG PO ×3 (08:18→19:01)
[2022-05-14] MEDS: levETIRAcetam 500 MG TABLET PO ×2 (08:18→19:01)
[2022-05-14] MEDS: Multivitamin TABLET 1 TAB PO (09:02)
[2022-05-14] MEDS: methADONE HCl 20 MG/2 ML ORAL.CONC 135 MG PO (09:02)
[2022-05-14] MEDS: cloNIDine HCL 0.1 MG TABLET PO ×2 (12:25→15:54)
[2022-05-14] MEDS: LORazepam 1 MG TABLET PO ×2 (13:50→15:54)
[2022-05-14 15:53] VITALS: BP 154/94; PULSE 94
--- NOTE | 2022-05-14 16:26 | P.PNPSI_ITS ---
Subjective Subjective Date of Service: 05/14/22 Reason For Visit: depression Subjective Notes: Conditional Voluntary Healthcare Proxy: No Guardianship: No Medical Problems Affecting Mental Status: No Interim History: [facility] gave me an interview for Tuesday at 1:45pm . Pt pleased that previous placement has responded to his need. He is hopeful regarding placement. No return call from OP medication prescriber regarding pt wanting Klonopin. Discussed the difficulties with this issue with him. States he was not aware of these issues. Medication Compliance: Yes Side effects from medications: No Attending Groups: Intermittent Review of Systems Acute medical concerns: No Medical Review of Systems: unchanged Review of Systems Psychiatric: Reports anxiety, Reports auditory hallucinations and Reports paranoia Mental Status Exam Mental Status Exam Patient Appearance: Appropriate Patient Orientation: Person, Place, Time and Situation Level of Consciousness: Alert Patient Behavior: Talkative, Cooperative and Good Eye Contact Mood Description: Anxious Affect Description: Flat Patient Cognition Impaired: No Ability to Follow Directions: Good Speech Pattern: Spontaneous Speech and Soft-Spoken Memory Description: Intact Hallucinations: Auditory Delusions: Paranoid Ideation Perceptual Disturbances: Depersonalization and Derealization Thought Process: Rumination Thought Content: positive for Perseveration and positive for Suicidal Ideation (denies) Depressive Symptoms: Difficulty Sleeping, Thoughts of /Suicide (denies), Low Self Esteem and Difficulty Concentrating Judgement: Fair Diagnostics Vital Signs (24Hr): Vital Signs - 24 hr 05/13/22 19:45 05/14/22 06:00 05/14/22 15:53 Temperature 97.7 F Pulse Rate 80 100 94 Respiratory Rate 14 Blood Pressure 116/77 132/78 154/94 H Pulse Oximetry 99 Oxygen Delivery Method Room Air BMI result Body Mass Index 36.9 Labs Results: 04/30/22 18:26 05/02/22 08:09 Imaging Radiology Impressions: ITS Impressions Chest X-Ray 04/30/22 17:52 IMPRESSION: No acute cardiopulmonary process. Medications Medications Current Medications Acetaminophen (Acetaminophen 325 Mg Tablet) 650 mg PO Q6H PRN PRN Reason: Headache/Pain Mild Scale (1-3) Last Admin: 05/04/22 12:02 Dose: 650 mg Acetaminophen/Butalbital/Caffeine (Butalb/Acetamin/Caff 50/325/40 Tablet) 1 tab PO Q12H PRN PRN Reason: migraine Last Admin: 05/13/22 18:27 Dose: 1 tab Al Hydroxide/Mg Hydroxide (Magnesium Hydrox/Alum Hydrox 30 Ml Oral.Susp) 30 ml PO Q6H PRN PRN Reason: Heartburn/Nausea Bictegravir/Emtricitabine/Tenofovir (Bictegrav/Emtricit/Tenofov Ala Tablet) 1 tab PO DAILY [facility] Last Admin: 05/14/22 08:18 Dose: 1 tab Bupropion HCl (Bupropion Hcl Xl 150 Mg Tab.Er.24h) 150 mg PO 0900,1300 [facility] Last Admin: 05/14/22 12:02 Dose: 150 mg Chlorpromazine HCl (Chlorpromazine Hcl 25 Mg Tablet) 50 mg PO TID PRN PRN Reason: auditory perceptual alterations Last Admin: 05/11/22 20:24 Dose: 50 mg Clonidine HCl (Clonidine Hcl 0.1 Mg Tablet) 0.1 mg PO BID PRN; Protocol PRN Reason: anxiety Last Admin: 05/14/22 15:54 Dose: 0.1 mg Gabapentin (Gabapentin 400 Mg Capsule) 800 mg PO TID [facility] Last Admin: 05/14/22 13:50 Dose: 800 mg Levetiracetam (Levetiracetam 500 Mg Tablet) 500 mg PO BID [facility] Last Admin: 05/14/22 08:18 Dose: 500 mg Lorazepam (Lorazepam 1 Mg Tablet) 1 mg PO BID PRN PRN Reason: severe anxiety Last Admin: 05/14/22 15:54 Dose: 1 mg Magnesium Hydroxide (Milk Of Magnesia 30 Ml Oral.Susp) 30 ml PO DAILY PRN PRN Reason: Constipation Methadone HCl (Methadone Hcl 20 Mg/2 Ml Oral.Conc) 135 mg PO DAILY [facility] Last Admin: 05/14/22 09:02 Dose: 135 mg Multivitamins/Vitamin C (Multivitamin Tablet) 1 tab PO DAILY [facility] Last Admin: 05/14/22 09:02 Dose: 1 tab Nicotine (Nicotine 21 Mg Patch.Td24) 21 mg TRANSDERMA DAILY [facility] Last Admin: 05/14/22 09:03 Dose: Not Given Non-Formulary Medication (Lumateperone [Caplyta]) 1 cap PO BEDTIME [facility] Non-Formulary Medication (Sofosbuvir-Velpatasvir) 1 tab PO DAILY [facility] Olanzapine (Olanzapine 5 Mg Tablet) 5 mg PO DAILY [facility] Last Admin: 05/14/22 08:17 Dose: 5 mg Olanzapine (Olanzapine 10 Mg Tablet) 20 mg PO BEDTIME [facility] Last Admin: 05/13/22 20:11 Dose: 20 mg Prazosin HCl (Prazosin Hcl 1 Mg Capsule) 2 mg PO BID [facility]; Protocol Last Admin: 05/14/22 08:18 Dose: 2 mg Prazosin HCl (Prazosin Hcl 1 Mg Capsule) 4 mg PO BEDTIME [facility]; Protocol Last Admin: 05/13/22 20:12 Dose: 4 mg Sertraline HCl (Sertraline Hcl 100 Mg Tablet) 200 mg PO DAILY [facility] Last Admin: 05/14/22 08:18 Dose: 200 mg Sumatriptan Succinate (Sumatriptan Succinate 50 Mg Tablet) 50 mg PO DAILY MRX1 PRN PRN Reason: Migraine Headache Last Admin: 05/12/22 08:10 Dose: 50 mg Topiramate (Topiramate 25 Mg Tablet) 50 mg PO BID [facility] Last Admin: 05/14/22 08:18 Dose: 50 mg Trazodone HCl (Trazodone Hcl 50 Mg Tablet) 50 mg PO BEDTIME PRN PRN Reason: Insomnia Allergies Allergies Allergy/AdvReac Type Severity Reaction Status Date / Time Penicillins Allergy Rash Verified 04/30/22 18:36 Assessment & Plan Assessment & Plan (1) Migraine without aura: Status: Acute Code(s): G43.009 - Migraine without aura, not intractable, without status migrainosus Assessment and Plan: Is currently on topiramate for migraine prophylaxis. I would increase the dose to 50 mg twice a day. He should keep a log of his migraines. For abortive therapy Fioricet 2 tablets at onset of migraine seems to work best for him and he may continue that with her monthly limit of 15 pills/month. (2) Severe recurrent major depression w/psychotic features, mood-congruent: Status: Acute Code(s): F33.3 - Major depressive disorder, recurrent, severe with psychotic symptoms (3) Opioid use disorder: Status: Acute Code(s): F11.90 - Opioid use, unspecified, uncomplicated Plan 46 yo male, hx of recurrent major depression with psychosis, opiate use disorder, currently on Methadone. Recent completion of [employer] program with transfer to [facility] program where he found that peers were selling drugs, using drugs and not living in a sober environment. This, along with an argument with his family in [place] precipitated a relapse, increase in command voices to hang himself. Plan: Medications reconciled with [facility]. Continue current regime TSH B12 Folate A1C 05/03/22: Increase HS Prazosin to 4 mg Risperdal 0.5 mg HS Discharge planning. 05/04/22 Discontinue Risperdal Increase Olanzapine to 10 mg at HS 05/05/22 Increase HS Olanzapine to 15 mg Topiramate 25 mg daily-mood and headache mgt. 05/06/22 Increase Sertraline to 200 mg daily Request for room change with a room-mate who does not require 1-1 as it appears to be activating PTSD Sx. 05/07 continue current medications. 05/08 increase topamax to 25 mg BID targeting headaches 05/09 Increase Zyprexa to 20 mg HS. 05/12/22. Pt will consider Topiramate increase- review of neuro consult with [facility] consultation much appreciated No medication changes today. Discussed with pt using coping skills to manage PTSD sx. 05/14/22: Sav interview Thursday 05/17 1:45pm. Continue current regime I spent minutes with the patient and/or on the patient floor today, greater than?50% of which was spent counseling/coordinating care. Patient educated on: medication risk/benefits and therapeutic strategies Informed Consent: further education needed Reason for contiued inpatient stay Substantial Risk for: harm to self, inability to function and rapid decompensation
[2022-05-14] MEDS: Prazosin HCL 1 MG CAPSULE 4 MG PO (19:00)
[2022-05-14] MEDS: OLANZapine 10 MG TABLET 20 MG PO (19:00)
[2022-05-15] MEDS: Prazosin HCL 1 MG CAPSULE 2 MG PO ×2 (08:27→21:22)
[2022-05-15] MEDS: levETIRAcetam 500 MG TABLET PO ×2 (08:28→21:18)
[2022-05-15] MEDS: Topiramate 25 MG TABLET 50 MG PO ×2 (08:28→21:18)
[2022-05-15] MEDS: OLANZapine 5 MG TABLET PO (08:28)
[2022-05-15] MEDS: Sertraline HCL 100 MG TABLET 200 MG PO (08:29)
[2022-05-15] MEDS: Gabapentin 400 MG CAPSULE 800 MG PO ×3 (08:29→21:21)
[2022-05-15] MEDS: buPROPion HCl XL 150 MG TAB.ER.24H PO ×2 (08:30→12:14)
[2022-05-15] MEDS: Bictegrav/Emtricit/Tenofov Ala TABLET 1 TAB PO (08:30)
[2022-05-15] MEDS: Multivitamin TABLET 1 TAB PO (08:31)
[2022-05-15] MEDS: LORazepam 1 MG TABLET PO ×3 (08:34→19:01)
[2022-05-15] MEDS: methADONE HCl 20 MG/2 ML ORAL.CONC 135 MG PO (08:35)
[2022-05-15 08:44] VITALS: BP 130/77; PULSE 82; RESP 16; TEMP 36.5; O2SAT 99
[2022-05-15] MEDS: cloNIDine HCL 0.1 MG TABLET PO ×2 (09:09→14:58)
[2022-05-15] MEDS: Butalb/Acetamin/Caff 50/325/40 TABLET 1 TAB PO (10:20)
[2022-05-15] MEDS: Nicotine 21 MG PATCH.TD24 TRANSDERMA ×2 (10:51→10:53)
--- NOTE | 2022-05-15 12:08 | P.PNPSI_ITS ---
Subjective Subjective Date of Service: 05/15/22 Reason For Visit: depression Interim History: Patient denies SI but says that he is still very depressed. Also has auditory hallucinations. Patient has trouble sleeping. He says that he was put on Wellbutrin mostly for helping to quit smoking but agrees to have the dose increased as long as occur remains b.i.d. Mental Status Exam Mental Status Exam Narrative: Pt is alert and oriented; behavior is cooperative, fcalm; patient is not in distress; dressed in casual attire with dreadlocks, unkempt cloths; mood is described as depressed and affect congruent; eye contact appropriate; Speech is normal rate, volume and prosody and not pressured; no psychomotor agitation/retardation present; thought process is organized and goal directed; Thought content is on tx; otherwise pertinent to relevant topics and without any delusional content, paranoid ideations or grandiosity; denies any SI/HI. AH Patients insight and judgment are impaired. Diagnostics Vital Signs (24Hr): Vital Signs - 24 hr 05/14/22 15:53 05/15/22 08:44 Temperature 97.7 F Pulse Rate 94 82 Respiratory Rate 16 Blood Pressure 154/94 H 130/77 Pulse Oximetry 99 Oxygen Delivery Method Room Air BMI result Body Mass Index 36.9 Labs Results: 04/30/22 18:26 05/02/22 08:09 Imaging Radiology Impressions: ITS Impressions Chest X-Ray 04/30/22 17:52 IMPRESSION: No acute cardiopulmonary process. Medications Medications Current Medications Acetaminophen (Acetaminophen 325 Mg Tablet) 650 mg PO Q6H PRN PRN Reason: Headache/Pain Mild Scale (1-3) Last Admin: 05/04/22 12:02 Dose: 650 mg Acetaminophen/Butalbital/Caffeine (Butalb/Acetamin/Caff 50/325/40 Tablet) 1 tab PO Q12H PRN PRN Reason: migraine Last Admin: 05/15/22 10:20 Dose: 1 tab Al Hydroxide/Mg Hydroxide (Magnesium Hydrox/Alum Hydrox 30 Ml Oral.Susp) 30 ml PO Q6H PRN PRN Reason: Heartburn/Nausea Bictegravir/Emtricitabine/Tenofovir (Bictegrav/Emtricit/Tenofov Ala Tablet) 1 tab PO DAILY [facility] Last Admin: 05/15/22 08:30 Dose: 1 tab Bupropion HCl (Bupropion Hcl Xl 150 Mg Tab.Er.24h) 150 mg PO 0900,1300 [facility] Last Admin: 05/15/22 08:30 Dose: 150 mg Chlorpromazine HCl (Chlorpromazine Hcl 25 Mg Tablet) 50 mg PO TID PRN PRN Reason: auditory perceptual alterations Last Admin: 05/11/22 20:24 Dose: 50 mg Clonidine HCl (Clonidine Hcl 0.1 Mg Tablet) 0.1 mg PO BID PRN; Protocol PRN Reason: anxiety Last Admin: 05/15/22 09:09 Dose: 0.1 mg Gabapentin (Gabapentin 400 Mg Capsule) 800 mg PO TID [facility] Last Admin: 05/15/22 08:29 Dose: 800 mg Levetiracetam (Levetiracetam 500 Mg Tablet) 500 mg PO BID [facility] Last Admin: 05/15/22 08:28 Dose: 500 mg Lorazepam (Lorazepam 1 Mg Tablet) 1 mg PO BID PRN PRN Reason: severe anxiety Last Admin: 05/15/22 08:34 Dose: 1 mg Magnesium Hydroxide (Milk Of Magnesia 30 Ml Oral.Susp) 30 ml PO DAILY PRN PRN Reason: Constipation Methadone HCl (Methadone Hcl 20 Mg/2 Ml Oral.Conc) 135 mg PO DAILY [facility] Last Admin: 05/15/22 08:35 Dose: 135 mg Multivitamins/Vitamin C (Multivitamin Tablet) 1 tab PO DAILY [facility] Last Admin: 05/15/22 08:31 Dose: 1 tab Nicotine (Nicotine 21 Mg Patch.Td24) 21 mg TRANSDERMA DAILY [facility] Last Admin: 05/15/22 10:53 Dose: 21 mg Non-Formulary Medication (Lumateperone [Caplyta]) 1 cap PO BEDTIME [facility] Non-Formulary Medication (Sofosbuvir-Velpatasvir) 1 tab PO DAILY [facility] Olanzapine (Olanzapine 5 Mg Tablet) 5 mg PO DAILY [facility] Last Admin: 05/15/22 08:28 Dose: 5 mg Olanzapine (Olanzapine 10 Mg Tablet) 20 mg PO BEDTIME [facility] Last Admin: 05/14/22 19:00 Dose: 20 mg Prazosin HCl (Prazosin Hcl 1 Mg Capsule) 2 mg PO BID [facility]; Protocol Last Admin: 05/15/22 08:27 Dose: 2 mg Prazosin HCl (Prazosin Hcl 1 Mg Capsule) 4 mg PO BEDTIME [facility]; Protocol Last Admin: 05/14/22 19:00 Dose: 4 mg Sertraline HCl (Sertraline Hcl 100 Mg Tablet) 200 mg PO DAILY [facility] Last Admin: 05/15/22 08:29 Dose: 200 mg Sumatriptan Succinate (Sumatriptan Succinate 50 Mg Tablet) 50 mg PO DAILY MRX1 PRN PRN Reason: Migraine Headache Last Admin: 05/12/22 08:10 Dose: 50 mg Topiramate (Topiramate 25 Mg Tablet) 50 mg PO BID [facility] Last Admin: 05/15/22 08:28 Dose: 50 mg Trazodone HCl (Trazodone Hcl 50 Mg Tablet) 50 mg PO BEDTIME PRN PRN Reason: Insomnia Allergies Allergies Allergy/AdvReac Type Severity Reaction Status Date / Time Penicillins Allergy Rash Verified 04/30/22 18:36 Assessment & Plan Assessment & Plan (1) Migraine without aura: Status: Acute Code(s): G43.009 - Migraine without aura, not intractable, without status migrainosus Assessment and Plan: Is currently on topiramate for migraine prophylaxis. I would increase the dose to 50 mg twice a day. He should keep a log of his migraines. For abortive therapy Fioricet 2 tablets at onset of migraine seems to work best for him and he may continue that with her monthly limit of 15 pills/month. (2) Severe recurrent major depression w/psychotic features, mood-congruent: Status: Acute Code(s): F33.3 - Major depressive disorder, recurrent, severe with psychotic symptoms (3) Opioid use disorder: Status: Acute Code(s): F11.90 - Opioid use, unspecified, uncomplicated Plan 46 yo male, hx of recurrent major depression with psychosis, opiate use disorder, currently on Methadone. Recent completion of [facility] program with transfer to [facility] program where he found that peers were selling drugs, using drugs and not living in a sober environment. This, along with an argument with his family in [place] precipitated a relapse, increase in command voices to hang himself. Plan: Medications reconciled with [facility] Main [facility]. Continue current regime TSH B12 Folate A1C 05/03/22: Increase HS Prazosin to 4 mg Risperdal 0.5 mg HS Discharge planning. 05/04/22 Discontinue Risperdal Increase Olanzapine to 10 mg at HS 05/05/22 Increase HS Olanzapine to 15 mg Topiramate 25 mg daily-mood and headache mgt. 05/06/22 Increase Sertraline to 200 mg daily Request for room change with a room-mate who does not require 1-1 as it appears to be activating PTSD Sx. 05/07 continue current medications. 05/08 increase topamax to 25 mg BID targeting headaches 05/09 Increase Zyprexa to 20 mg HS. 05/12/22. Pt will consider Topiramate increase- review of neuro consult with [facility] consultation much appreciated No medication changes today. Discussed with pt using coping skills to manage PTSD sx. 05/14/22: Sav interview Thursday 05/17 1:45pm. Continue current regime 05/15/22: Pt some trouble sleeping so moved Wellbutrin XL to 300mg in AM and keep 150mg in afternoon for the dual purpose of helping quit smoking as well as mood I spent minutes with the patient and/or on the patient floor today, greater than?50% of which was spent counseling/coordinating care. Patient educated on: medication risk/benefits Informed Consent: understands Reason for contiued inpatient stay Substantial Risk for: rapid decompensation
[2022-05-15 15:01] VITALS: BP 125/82; PULSE 99
[2022-05-15 17:56] VITALS: BP 126/55; PULSE 90; RESP 18; TEMP 36.4; O2SAT 97
[2022-05-15 21:18] VITALS: BP 141/88; PULSE 102
[2022-05-15] MEDS: Prazosin HCL 5 MG CAPSULE PO (21:18)
[2022-05-15] MEDS: OLANZapine 10 MG TABLET 20 MG PO (21:19)
[2022-05-16 06:00] VITALS: BP 138/84; PULSE 106
[2022-05-16] MEDS: levETIRAcetam 500 MG TABLET PO ×2 (07:53→20:07)
[2022-05-16] MEDS: Sertraline HCL 100 MG TABLET 200 MG PO (07:53)
[2022-05-16] MEDS: Prazosin HCL 1 MG CAPSULE 2 MG PO ×2 (07:53→20:06)
[2022-05-16] MEDS: Topiramate 25 MG TABLET 50 MG PO ×2 (07:53→20:06)
[2022-05-16] MEDS: buPROPion HCl XL 300 MG TAB.ER.24H PO (07:53)
[2022-05-16] MEDS: Gabapentin 400 MG CAPSULE 800 MG PO ×3 (07:54→20:07)
[2022-05-16] MEDS: Bictegrav/Emtricit/Tenofov Ala TABLET 1 TAB PO (07:54)
[2022-05-16] MEDS: Multivitamin TABLET 1 TAB PO (07:54)
[2022-05-16] MEDS: OLANZapine 5 MG TABLET PO (07:54)
[2022-05-16] MEDS: methADONE HCl 20 MG/2 ML ORAL.CONC 135 MG PO (07:55)
[2022-05-16] MEDS: cloNIDine HCL 0.1 MG TABLET PO ×2 (08:39→15:37)
[2022-05-16] MEDS: LORazepam 1 MG TABLET PO ×2 (08:39→15:37)
[2022-05-16] MEDS: Butalb/Acetamin/Caff 50/325/40 TABLET 1 TAB PO ×2 (08:51→21:10)
[2022-05-16] MEDS: buPROPion HCl XL 150 MG TAB.ER.24H PO (14:00)
[2022-05-16 15:38] VITALS: BP 130/76; PULSE 105; TEMP 37.1; O2SAT 96
--- NOTE | 2022-05-16 16:48 | P.PNPSI_ITS ---
Subjective Subjective Date of Service: 05/16/22 Reason For Visit: depression Interim History: Patient says that his mood is a little better today and appreciates the change of Wellbutrin. Still has auditory hallucinations, but no SI Mental Status Exam Mental Status Exam Narrative: Pt is alert and oriented; behavior is cooperative, fcalm; patient is not in distress; dressed in casual attire with dreadlocks, unkempt cloths; mood is described as depressed but a little better and affect congruent; eye contact appropriate; Speech is normal rate, volume and prosody and not pressured; no psychomotor agitation/retardation present; thought process is organized and goal directed; Thought content is on tx; otherwise pertinent to relevant topics and without any delusional content, paranoid ideations or grandiosity; denies any SI/HI. remains with Patients insight and judgment are impaired. Diagnostics Vital Signs (24Hr): Vital Signs - 24 hr 05/15/22 17:56 05/15/22 21:18 05/16/22 06:00 Temperature 97.6 F Pulse Rate 90 102 H 106 H Respiratory Rate 18 Blood Pressure 126/55 L 141/88 H 138/84 Pulse Oximetry 97 Oxygen Delivery Method Room Air 05/16/22 15:38 Temperature 98.7 F Pulse Rate 105 H Respiratory Rate Blood Pressure 130/76 Pulse Oximetry 96 Oxygen Delivery Method Room Air BMI result Body Mass Index 36.9 Labs Results: 04/30/22 18:26 05/02/22 08:09 Imaging Radiology Impressions: ITS Impressions Chest X-Ray 04/30/22 17:52 IMPRESSION: No acute cardiopulmonary process. Medications Medications Current Medications Acetaminophen (Acetaminophen 325 Mg Tablet) 650 mg PO Q6H PRN PRN Reason: Headache/Pain Mild Scale (1-3) Last Admin: 05/04/22 12:02 Dose: 650 mg Acetaminophen/Butalbital/Caffeine (Butalb/Acetamin/Caff 50/325/40 Tablet) 1 tab PO Q12H PRN PRN Reason: migraine Last Admin: 05/16/22 08:51 Dose: 1 tab Al Hydroxide/Mg Hydroxide (Magnesium Hydrox/Alum Hydrox 30 Ml Oral.Susp) 30 ml PO Q6H PRN PRN Reason: Heartburn/Nausea Bictegravir/Emtricitabine/Tenofovir (Bictegrav/Emtricit/Tenofov Ala Tablet) 1 tab PO DAILY [facility] Last Admin: 05/16/22 07:54 Dose: 1 tab Bupropion HCl (Bupropion Hcl Xl 300 Mg Tab.Er.24h) 300 mg PO DAILY [facility] Last Admin: 05/16/22 07:53 Dose: 300 mg Bupropion HCl (Bupropion Hcl Xl 150 Mg Tab.Er.24h) 150 mg PO DAILY@1300 [facility] Last Admin: 05/16/22 14:00 Dose: 150 mg Chlorpromazine HCl (Chlorpromazine Hcl 25 Mg Tablet) 50 mg PO TID PRN PRN Reason: auditory perceptual alterations Last Admin: 05/11/22 20:24 Dose: 50 mg Clonidine HCl (Clonidine Hcl 0.1 Mg Tablet) 0.1 mg PO BID PRN; Protocol PRN Reason: anxiety Last Admin: 05/16/22 15:37 Dose: 0.1 mg Gabapentin (Gabapentin 400 Mg Capsule) 800 mg PO TID [facility] Last Admin: 05/16/22 14:00 Dose: 800 mg Levetiracetam (Levetiracetam 500 Mg Tablet) 500 mg PO BID [facility] Last Admin: 05/16/22 07:53 Dose: 500 mg Lorazepam (Lorazepam 1 Mg Tablet) 1 mg PO BID PRN PRN Reason: severe anxiety Last Admin: 05/16/22 15:37 Dose: 1 mg Magnesium Hydroxide (Milk Of Magnesia 30 Ml Oral.Susp) 30 ml PO DAILY PRN PRN Reason: Constipation Methadone HCl (Methadone Hcl 20 Mg/2 Ml Oral.Conc) 135 mg PO DAILY [facility] Last Admin: 05/16/22 07:55 Dose: 135 mg Multivitamins/Vitamin C (Multivitamin Tablet) 1 tab PO DAILY [facility] Last Admin: 05/16/22 07:54 Dose: 1 tab Nicotine (Nicotine 21 Mg Patch.Td24) 21 mg TRANSDERMA DAILY [facility] Last Admin: 05/15/22 10:53 Dose: 21 mg Non-Formulary Medication (Lumateperone [Caplyta]) 1 cap PO BEDTIME [facility] Non-Formulary Medication (Sofosbuvir-Velpatasvir) 1 tab PO DAILY [facility] Olanzapine (Olanzapine 5 Mg Tablet) 5 mg PO DAILY [facility] Last Admin: 05/16/22 07:54 Dose: 5 mg Olanzapine (Olanzapine 10 Mg Tablet) 20 mg PO BEDTIME [facility] Last Admin: 05/15/22 21:19 Dose: 20 mg Prazosin HCl (Prazosin Hcl 1 Mg Capsule) 2 mg PO BID [facility]; Protocol Last Admin: 05/16/22 07:53 Dose: 2 mg Prazosin HCl (Prazosin Hcl 5 Mg Capsule) 5 mg PO BEDTIME [facility]; Protocol Last Admin: 05/15/22 21:18 Dose: 5 mg Sertraline HCl (Sertraline Hcl 100 Mg Tablet) 200 mg PO DAILY [facility] Last Admin: 05/16/22 07:53 Dose: 200 mg Sumatriptan Succinate (Sumatriptan Succinate 50 Mg Tablet) 50 mg PO DAILY MRX1 PRN PRN Reason: Migraine Headache Last Admin: 05/12/22 08:10 Dose: 50 mg Topiramate (Topiramate 25 Mg Tablet) 50 mg PO BID [facility] Last Admin: 05/16/22 07:53 Dose: 50 mg Trazodone HCl (Trazodone Hcl 50 Mg Tablet) 50 mg PO BEDTIME PRN PRN Reason: Insomnia Allergies Allergies Allergy/AdvReac Type Severity Reaction Status Date / Time Penicillins Allergy Rash Verified 04/30/22 18:36 Assessment & Plan Assessment & Plan (1) Migraine without aura: Status: Acute Code(s): G43.009 - Migraine without aura, not intractable, without status migrainosus Assessment and Plan: Is currently on topiramate for migraine prophylaxis. I would increase the dose to 50 mg twice a day. He should keep a log of his migraines. For abortive therapy Fioricet 2 tablets at onset of migraine seems to work best for him and he may continue that with her monthly limit of 15 pills/month. (2) Severe recurrent major depression w/psychotic features, mood-congruent: Status: Acute Code(s): F33.3 - Major depressive disorder, recurrent, severe with psychotic symptoms (3) Opioid use disorder: Status: Acute Code(s): F11.90 - Opioid use, unspecified, uncomplicated Plan 46 yo male, hx of recurrent major depression with psychosis, opiate use disorder, currently on Methadone. Recent completion of [facility] program with transfer to [facility] sober living program where he found that peers were selling drugs, using drugs and not living in a sober environment. This, along with an argument with his family in [place] precipitated a relapse, increase in command voices to hang himself. Plan: Medications reconciled with [facility]. Continue current regime TSH B12 Folate A1C 05/03/22: Increase HS Prazosin to 4 mg Risperdal 0.5 mg HS Discharge planning. 05/04/22 Discontinue Risperdal Increase Olanzapine to 10 mg at HS 05/05/22 Increase HS Olanzapine to 15 mg Topiramate 25 mg daily-mood and headache mgt. 05/06/22 Increase Sertraline to 200 mg daily Request for room change with a room-mate who does not require 1-1 as it appears to be activating PTSD Sx. 05/07 continue current medications. 05/08 increase topamax to 25 mg BID targeting headaches 05/09 Increase Zyprexa to 20 mg HS. 05/12/22. Pt will consider Topiramate increase- review of neuro consult with [facility] consultation much appreciated No medication changes today. Discussed with pt using coping skills to manage PTSD sx. 05/14/22: Sav interview Thursday 05/17 1:45pm. Continue current regime 05/15/22: Pt some trouble sleeping so moved Wellbutrin XL to 300mg in AM and keep 150mg in afternoon for the dual purpose of helping quit smoking as well as mood 05/16/22 feels increased Wellbutrin has helped his mood; still AH; no SI I spent minutes with the patient and/or on the patient floor today, greater than?50% of which was spent counseling/coordinating care. Patient educated on: medication risk/benefits Informed Consent: understands Reason for contiued inpatient stay Substantial Risk for: rapid decompensation
[2022-05-16] MEDS: OLANZapine 10 MG TABLET 20 MG PO (20:06)
[2022-05-16] MEDS: Prazosin HCL 5 MG CAPSULE PO (20:07)
[2022-05-17] MEDS: cloNIDine HCL 0.1 MG TABLET PO ×2 (05:36→13:09)
[2022-05-17] MEDS: LORazepam 1 MG TABLET PO ×2 (05:36→13:09)
[2022-05-17 06:00] VITALS: BP 140/82; PULSE 104
[2022-05-17] MEDS: methADONE HCl 20 MG/2 ML ORAL.CONC 135 MG PO (07:44)
[2022-05-17] MEDS: Sertraline HCL 100 MG TABLET 200 MG PO (07:45)
[2022-05-17] MEDS: Gabapentin 400 MG CAPSULE 800 MG PO ×2 (07:45→14:26)
[2022-05-17] MEDS: Multivitamin TABLET 1 TAB PO (07:45)
[2022-05-17] MEDS: OLANZapine 5 MG TABLET PO (07:45)
[2022-05-17] MEDS: Topiramate 25 MG TABLET 50 MG PO ×2 (07:45→21:26)
[2022-05-17] MEDS: Prazosin HCL 1 MG CAPSULE 2 MG PO ×2 (07:46→21:25)
[2022-05-17] MEDS: levETIRAcetam 500 MG TABLET PO ×2 (07:46→21:27)
[2022-05-17] MEDS: buPROPion HCl XL 300 MG TAB.ER.24H PO (07:46)
[2022-05-17] MEDS: Bictegrav/Emtricit/Tenofov Ala TABLET 1 TAB PO (07:46)
[2022-05-17] MEDS: chlorproMAZINE HCl 25 MG TABLET 50 MG PO ×2 (10:27→16:20)
[2022-05-17] MEDS: Butalb/Acetamin/Caff 50/325/40 TABLET 1 TAB PO (12:10)
[2022-05-17] MEDS: buPROPion HCl XL 150 MG TAB.ER.24H PO (12:10)
[2022-05-17] MEDS: Acetaminophen 325 MG TABLET 650 MG PO (16:21)
--- NOTE | 2022-05-17 17:08 | HO.PSYCHPN ---
Subjective Subjective Date of Service: 05/17/22 Reason For Visit: depression Subjective Notes: Conditional Voluntary Healthcare Proxy: No Guardianship: No Medical Problems Affecting Mental Status: No Interim History: Pt preparing for discharge. Interview today with [facility] program for re-admission for rehab (pt has recently graduated from this program and did very well). Review of sx/meds. Anxiety/voices continue to be problematic in anticipation of discharge. Family will send funds for pt to rent a hotel room prior to his next addiction rehab. Discussed increase of Olanzapine and Gabapentin. He agrees Medication Compliance: Yes Side effects from medications: No Attending Groups: Yes Review of Systems Acute medical concerns: No Medical Review of Systems: unchanged Review of Systems Psychiatric: Reports anxiety, Reports auditory hallucinations and Reports suicidal ideation (denies) Mental Status Exam Mental Status Exam Patient Appearance: Appropriate Patient Orientation: Person, Place, Time and Situation Level of Consciousness: Alert Patient Behavior: Appropriate, Talkative, Cooperative and Good Eye Contact Mood Description: Anxious Affect Description: Anxious Patient Cognition Impaired: No Ability to Follow Directions: Good Speech Pattern: Spontaneous Speech and Soft-Spoken Memory Description: Intact Hallucinations: Auditory Delusions: Paranoid Ideation Perceptual Disturbances: Depersonalization and Derealization Thought Process: Rumination and Goal Oriented Thought Content: positive for [place], positive for Circumstantial, positive for Goal Oriented, positive for Perseveration, positive for Suicidal Ideation (denies) and positive for Homicidal Ideation (denies) Depressive Symptoms: Increased Anxiety and Thoughts of /Suicide (denies) Judgement: Good Diagnostics Vital Signs (24Hr): Vital Signs - 24 hr 05/17/22 06:00 Pulse Rate 104 H Blood Pressure 140/82 H BMI result Body Mass Index 36.9 Labs Results: 04/30/22 18:26 05/02/22 08:09 Imaging Radiology Impressions: ITS Impressions Chest X-Ray 04/30/22 17:52 IMPRESSION: No acute cardiopulmonary process. Medications Medications Current Medications Acetaminophen (Acetaminophen 325 Mg Tablet) 650 mg PO Q6H PRN PRN Reason: Headache/Pain Mild Scale (1-3) Last Admin: 05/17/22 16:21 Dose: 650 mg Acetaminophen/Butalbital/Caffeine (Butalb/Acetamin/Caff 50/325/40 Tablet) 1 tab PO Q12H PRN PRN Reason: migraine Last Admin: 05/17/22 12:10 Dose: 1 tab Al Hydroxide/Mg Hydroxide (Magnesium Hydrox/Alum Hydrox 30 Ml Oral.Susp) 30 ml PO Q6H PRN PRN Reason: Heartburn/Nausea Bictegravir/Emtricitabine/Tenofovir (Bictegrav/Emtricit/Tenofov Ala Tablet) 1 tab PO DAILY [facility] Last Admin: 05/17/22 07:46 Dose: 1 tab Bupropion HCl (Bupropion Hcl Xl 300 Mg Tab.Er.24h) 300 mg PO DAILY [facility] Last Admin: 05/17/22 07:46 Dose: 300 mg Bupropion HCl (Bupropion Hcl Xl 150 Mg Tab.Er.24h) 150 mg PO DAILY@1300 [facility] Last Admin: 05/17/22 12:10 Dose: 150 mg Chlorpromazine HCl (Chlorpromazine Hcl 25 Mg Tablet) 50 mg PO TID PRN PRN Reason: auditory perceptual alterations Last Admin: 05/17/22 16:20 Dose: 50 mg Clonidine HCl (Clonidine Hcl 0.1 Mg Tablet) 0.1 mg PO BID PRN; Protocol PRN Reason: anxiety Last Admin: 05/17/22 13:09 Dose: 0.1 mg Gabapentin (Gabapentin 400 Mg Capsule) 800 mg PO TID [facility] Last Admin: 05/17/22 14:26 Dose: 800 mg Levetiracetam (Levetiracetam 500 Mg Tablet) 500 mg PO BID [facility] Last Admin: 05/17/22 07:46 Dose: 500 mg Lorazepam (Lorazepam 1 Mg Tablet) 1 mg PO BID PRN PRN Reason: severe anxiety Last Admin: 05/17/22 13:09 Dose: 1 mg Magnesium Hydroxide (Milk Of Magnesia 30 Ml Oral.Susp) 30 ml PO DAILY PRN PRN Reason: Constipation Methadone HCl (Methadone Hcl 20 Mg/2 Ml Oral.Conc) 135 mg PO DAILY [facility] Last Admin: 05/17/22 07:44 Dose: 135 mg Multivitamins/Vitamin C (Multivitamin Tablet) 1 tab PO DAILY [facility] Last Admin: 05/17/22 07:45 Dose: 1 tab Nicotine (Nicotine 21 Mg Patch.Td24) 21 mg TRANSDERMA DAILY [facility] Last Admin: 05/17/22 07:47 Dose: Not Given Non-Formulary Medication (Lumateperone [Caplyta]) 1 cap PO BEDTIME [facility] Non-Formulary Medication (Sofosbuvir-Velpatasvir) 1 tab PO DAILY [facility] Olanzapine (Olanzapine 5 Mg Tablet) 5 mg PO DAILY [facility] Last Admin: 05/17/22 07:45 Dose: 5 mg Olanzapine (Olanzapine 10 Mg Tablet) 20 mg PO BEDTIME [facility] Last Admin: 05/16/22 20:06 Dose: 20 mg Prazosin HCl (Prazosin Hcl 1 Mg Capsule) 2 mg PO BID [facility]; Protocol Last Admin: 05/17/22 07:46 Dose: 2 mg Prazosin HCl (Prazosin Hcl 5 Mg Capsule) 5 mg PO BEDTIME [facility]; Protocol Last Admin: 05/16/22 20:07 Dose: 5 mg Sertraline HCl (Sertraline Hcl 100 Mg Tablet) 200 mg PO DAILY [facility] Last Admin: 05/17/22 07:45 Dose: 200 mg Sumatriptan Succinate (Sumatriptan Succinate 50 Mg Tablet) 50 mg PO DAILY MRX1 PRN PRN Reason: Migraine Headache Last Admin: 05/12/22 08:10 Dose: 50 mg Topiramate (Topiramate 25 Mg Tablet) 50 mg PO BID [facility] Last Admin: 05/17/22 07:45 Dose: 50 mg Trazodone HCl (Trazodone Hcl 50 Mg Tablet) 50 mg PO BEDTIME PRN PRN Reason: Insomnia Allergies Allergies Allergy/AdvReac Type Severity Reaction Status Date / Time Penicillins Allergy Rash Verified 04/30/22 18:36 Assessment & Plan Assessment & Plan (1) Migraine without aura: Status: Acute Code(s): G43.009 - Migraine without aura, not intractable, without status migrainosus Assessment and Plan: Is currently on topiramate for migraine prophylaxis. I would increase the dose to 50 mg twice a day. He should keep a log of his migraines. For abortive therapy Fioricet 2 tablets at onset of migraine seems to work best for him and he may continue that with her monthly limit of 15 pills/month. (2) Severe recurrent major depression w/psychotic features, mood-congruent: Status: Acute Code(s): F33.3 - Major depressive disorder, recurrent, severe with psychotic symptoms (3) Opioid use disorder: Status: Acute Code(s): F11.90 - Opioid use, unspecified, uncomplicated Plan 46 yo male, hx of recurrent major depression with psychosis, opiate use disorder, currently on Methadone. Recent completion of [facility] program with transfer to [facility] sober living program where he found that peers were selling drugs, using drugs and not living in a sober environment. This, along with an argument with his family in [place] precipitated a relapse, increase in command voices to hang himself. Plan: Medications reconciled with [facility]. Continue current regime TSH B12 Folate A1C 05/03/22: Increase HS Prazosin to 4 mg Risperdal 0.5 mg HS Discharge planning. 05/04/22 Discontinue Risperdal Increase Olanzapine to 10 mg at HS 05/05/22 Increase HS Olanzapine to 15 mg Topiramate 25 mg daily-mood and headache mgt. 05/06/22 Increase Sertraline to 200 mg daily Request for room change with a room-mate who does not require 1-1 as it appears to be activating PTSD Sx. 05/07 continue current medications. 05/08 increase topamax to 25 mg BID targeting headaches 05/09 Increase Zyprexa to 20 mg HS. 05/12/22. Pt will consider Topiramate increase- review of neuro consult with [facility] consultation much appreciated No medication changes today. Discussed with pt using coping skills to manage PTSD sx. 05/14/22: Sav interview Thursday 05/17 1:45pm. Continue current regime 05/15/22: Pt some trouble sleeping so moved Wellbutrin XL to 300mg in AM and keep 150mg in afternoon for the dual purpose of helping quit smoking as well as mood 05/16/22 feels increased Wellbutrin has helped his mood; still AH; no SI 05/17/22. Increase in symptoms with anticipation of discharge. -Increase Gabapentin to 900 mg tid -Increase Olanzapine to 30 mg hs and 5 mg daily -Pt requests Klonopin/Ativan. Discussed rationale for not prescribing these medications. I spent minutes with the patient and/or on the patient floor today, greater than?50% of which was spent counseling/coordinating care. Patient educated on: diagnosis, medication risk/benefits and therapeutic strategies Informed Consent: understands and further education needed Reason for contiued inpatient stay Substantial Risk for: inability to function and rapid decompensation
[2022-05-17 18:00] VITALS: BP 133/74; PULSE 94; TEMP 36.3
[2022-05-17] MEDS: Gabapentin 300 MG CAPSULE 900 MG PO (21:23)
[2022-05-17] MEDS: Prazosin HCL 5 MG CAPSULE PO (21:24)
[2022-05-17] MEDS: OLANZapine 10 MG TABLET 30 MG PO (21:26)
[2022-05-18] MEDS: methADONE HCl 20 MG/2 ML ORAL.CONC 135 MG PO (08:15)
[2022-05-18] MEDS: buPROPion HCl XL 300 MG TAB.ER.24H PO (08:17)
[2022-05-18] MEDS: Multivitamin TABLET 1 TAB PO (08:17)
[2022-05-18] MEDS: cloNIDine HCL 0.1 MG TABLET PO ×2 (08:17→14:06)
[2022-05-18] MEDS: Prazosin HCL 1 MG CAPSULE 2 MG PO (08:17)
[2022-05-18] MEDS: Gabapentin 300 MG CAPSULE 900 MG PO ×2 (08:17→14:06)
[2022-05-18] MEDS: Bictegrav/Emtricit/Tenofov Ala TABLET 1 TAB PO (08:17)
[2022-05-18] MEDS: Butalb/Acetamin/Caff 50/325/40 TABLET 1 TAB PO (08:17)
[2022-05-18] MEDS: Topiramate 25 MG TABLET 50 MG PO (08:17)
[2022-05-18] MEDS: OLANZapine 5 MG TABLET PO (08:17)
[2022-05-18] MEDS: Sertraline HCL 100 MG TABLET 200 MG PO (08:17)
[2022-05-18] MEDS: LORazepam 1 MG TABLET PO ×2 (08:18→14:06)
[2022-05-18] MEDS: levETIRAcetam 500 MG TABLET PO (08:18)
[2022-05-18 08:22] VITALS: BP 135/82; PULSE 110; RESP 18
[2022-05-18] MEDS: buPROPion HCl XL 150 MG TAB.ER.24H PO (11:57)
--- NOTE | 2022-05-18 19:22 | PM.PSYDC ---
DS: Providers Provider Date of Service: 05/18/22 Date of admission: 05/01/22 18:37 Date of discharge: 05/18/22 Primary care physician: None Physician Admitting clinician: Eleanor Wallace Attending physician on admission: Cesar Tran Consults: 05/04/22 15:10 Addiction Medicine Routine Consulting Provider: Belkis López Reason for consultation: football coach support Has provider been notified: No 05/10/22 16:17 Consult to Neurology Routine Consulting Provider: [facility] Reason for consultation: migraine Has provider been notified: No Attending physician on discharge: Cesar Tran Discharging clinician: Eleanor Wallace DS: Diagnosis Discharge Diagnosis (1) Migraine without aura: Status: Acute (2) Severe recurrent major depression w/psychotic features, mood-congruent: Status: Acute (3) Opioid use disorder: Status: Acute DS: Medications Discharge Medications Home Medications: Home Medications Medication Instructions Recorded Confirmed methadone 10 mg/mL oral syringe 135 mg PO DAILY 05/01/22 05/01/22 (FOR ORAL USE ONLY) Previous Rx's Medication Instructions Recorded bupropion HCl 150 mg 24 hr tablet, 1 tab PO QAM depressive disorder 05/18/22 extended release (Wellbutrin XL) #30 tabs bupropion HCl 300 mg 24 hr tablet, 300 mg PO DAILY #30 tabs 05/18/22 extended release [id number] 1 tab PO Q12H PRN migraine #15 tabs 05/18/22 50 mg-325 mg-40 mg tablet clonidine HCl 0.1 mg tablet 1 tab PO BID PRN anxiety #60 tabs 05/18/22 gabapentin 100 mg capsule 100 mg PO TID #90 caps 05/18/22 gabapentin 800 mg tablet 800 mg PO TID #90 tabs 05/18/22 levetiracetam 500 mg tablet 1 tab PO BID #60 tabs 05/18/22 lumateperone 42 mg capsule 1 cap PO BEDTIME #30 caps 05/18/22 (Caplyta) multivitamin (Daily-Valerie) 1 tab PO DAILY #30 tabs 05/18/22 naloxone 4 mg/actuation nasal 4 mg intranasal Q2M PRN opioid 05/18/22 spray (Narcan) overdose #2 ea nicotine 21 mg/24 hr daily 21 mg transdermal DAILY #30 ea 05/18/22 transdermal patch olanzapine 15 mg tablet 30 mg PO BEDTIME #60 tabs 05/18/22 olanzapine 5 mg tablet 5 mg PO DAILY #30 tabs 05/18/22 prazosin 2 mg capsule 1 cap PO BID #60 caps 05/18/22 prazosin 5 mg capsule 5 mg PO BEDTIME #30 caps 05/18/22 sertraline 100 mg tablet 200 mg PO DAILY #60 tabs 05/18/22 sofosbuvir 400 mg-velpatasvir 100 1 tab PO DAILY #30 tabs 05/18/22 mg tablet topiramate 25 mg tablet 50 mg PO BID #120 tabs 05/18/22 Mental Status Exam Mental Status Exam Patient Appearance: Appropriate Patient Orientation: Person, Place, Time and Situation Level of Consciousness: Alert Patient Behavior: Appropriate, Talkative, Cooperative and Good Eye Contact Mood Description: Anxious Affect Description: Anxious Patient Cognition Impaired: No Ability to Follow Directions: Good Speech Pattern: Spontaneous Speech and Soft-Spoken Memory Description: Intact Hallucinations: Auditory Delusions: Paranoid Ideation Perceptual Disturbances: Depersonalization and Derealization Thought Process: Rumination and Goal Oriented Thought Content: positive for [place], positive for Circumstantial, positive for Goal Oriented, positive for Perseveration, positive for Suicidal Ideation (denies) and positive for Homicidal Ideation (denies) Depressive Symptoms: Increased Anxiety and Thoughts of /Suicide (denies) Judgement: Good Data Imaging Diagnostic Imaging Impressions Chest X-Ray 04/30/22 17:52 IMPRESSION: No acute cardiopulmonary process. DS: Summary Hospital Course Hospital Course: Admission to adult psychiatry for exacerbation of symptoms of recurrent major depression with psychotic features, opiate use disorder-currently on Methadone maintenance, Migraine. Wellbutrin, Clonidine, Keppra were continued, Gabapentin, Olanzapine, Prazosin, Sertraline were increased, Topiramate and Butalbital were added for migraine per neurology recommendations. Prior to admission, pt had lost placement due to lapse in sobriety. He had just completed a program and applied to return, however was anxious to go to a skilled nursing due to a history of previous conflict, causing an increase of symptoms preventing discharge. Pt also was consistent in his request for benzodiazepines. He was encouraged to discuss this with his out patient team as his methadone dosing may interfere and precipitate a reluctance to prescribe these together. Time spent discussing smoking cessation with patient: 3 to 10 minutes Status at Discharge Functional status at discharge: independent ambulation Overall status at discharge: patient is progressing back to baseline Time Spent with Patient Time attestation: Total time spent providing and/or coordinating discharge services: 40 Time spent: Greater than 30 minutes Discharge Plan Discharge Patient Disposition: Xfer Other Discharge Diagnosis: Recurrent major depression, severe, with psychotic features Opiate Use Disorder-Methadone Maintenance Migraine Referrals: Mary Ann Jiang [Other] - 05/18/22 11:00 am (Telephone appointment with psychiatrist) Jenny Johnson [Other] - 05/24/22 4:00 pm (Outpatient therapy appointment with therapist at [facility] In person appointment) [facility] [Provider Group] - 1 Week (Pt referred to [facility] walk in clinic. ) Discharge Medications: New sertraline 100 mg Tablet 200 mg PO DAILY Qty: 60 0RF [id number] 50-325-40 mg Tablet 1 tab PO Q12H PRN (Reason: migraine) Qty: 15 0RF prazosin 5 mg Capsule 5 mg PO BEDTIME Qty: 30 0RF Protocol: Hold for SBP< HOLD for SBP < : 90 nicotine 21 mg/24 hr Patch 24 Hour 21 mg transdermal DAILY Qty: 30 0RF bupropion HCl 300 mg Tablet Extended Release 24 Hr 300 mg PO DAILY Qty: 30 0RF multivitamin [Daily-Valerie] Tablet 1 tab PO DAILY Qty: 30 0RF olanzapine 5 mg Tablet 5 mg PO DAILY Qty: 30 0RF topiramate 25 mg Tablet 50 mg PO BID Qty: 120 0RF gabapentin 800 mg tablet 800 mg PO TID Qty: 90 0RF Rx Instructions: Gabapentin 900 mg tid gabapentin 100 mg capsule 100 mg PO TID Qty: 90 0RF Rx Instructions: Gabapentin 900 mg tid olanzapine 15 mg tablet 30 mg PO BEDTIME Qty: 60 0RF naloxone [Narcan] 4 mg/actuation spray,non-aerosol 4 mg intranasal Q2M PRN (Reason: opioid overdose) Qty: 2 0RF Rx Instructions: spray 1 dose into ONE nostril; alternate nostrils w each dose until help arrives Continued methadone 10 mg/mL Syringe 135 mg PO DAILY clonidine HCl 0.1 mg tablet 1 tab PO BID PRN (Reason: anxiety) Qty: 60 0RF levetiracetam 500 mg tablet 1 tab PO BID Qty: 60 0RF prazosin 2 mg capsule 1 cap PO BID Qty: 60 0RF bupropion HCl [Wellbutrin XL] 150 mg tablet extended release 24 hr 1 tab PO QAM Qty: 30 0RF sofosbuvir-velpatasvir 400-100 mg tablet 1 tab PO DAILY Qty: 30 0RF Caplyta 42 mg capsule 1 cap PO BEDTIME Qty: 30 0RF Discontinued prazosin 1 mg capsule 1 mg PO BEDTIME sertraline [Zoloft] 100 mg tablet 1.5 tab PO DAILY olanzapine 5 mg tablet 2.5 mg PO BID gabapentin 800 mg tablet 1 tab PO TID Discharge Orders: Discharge Order (Routine); Ordered 05/18/22 Ordered By: Eleanor Wallace Diet: Advance to usual diet Activity on Discharge: As tolerated Stand Alone Forms: Patient Portal Discharge page, Community Support Care Plan Goals: Maintain mood and safe behaviors Continue to pursue sobriety Take medications as directed Practice coping skills Continue with out patient providers Health Concerns: Recurrent major depression, severe with psychosis Opiate use disorder-methadone maintenance Migraine Plan of Treatment: Take medications as directed Attend scheduled appointments Assessment: non-psychotic non-suicidal Discharge Date/Time: 05/18/22 15:03
--- NOTE | 2022-05-19 16:17 | PM.EVENT ---
Event Note Date of Service: 05/19/22 Event Note: Received a call from [facility]. [phone]. Pt's Sofosbuvir-Velpatasvir has been filled with [facility] [phone] and as a result they cannot fill this. Also, pt's PA for this medication has . Call to [facility] to inform them. They will inform pt's provider team that PA is needed for refill. Pt last filled on 03/03/22 and 03/29/22.
== END 2022-05-18 15:03 | disposition other institution (70) | DRG 751 ==
LOC: HO.ED 05-01 09:41 → HO.PM5 05-01 18:48
PROVIDERS: Physician Assistant; Psychiatry & Neurology Psychiatry; Admitting Provider Psychiatry & Neurology Psychiatry; Emergency Provider Internal Medicine; Responsible Provider Clinical Nurse Specialist Psychiatric/Mental Health, Adult; Visit Provider Psychiatry & Neurology Psychiatry
DX: F33.3 Major depressive disorder, recurrent, severe with psychotic symptoms (principal); R45.851 Suicidal ideations; G43.909 Migraine, unspecified, not intractable, without status migrainosus; F11.20 Opioid dependence, uncomplicated; F17.210 Nicotine dependence, cigarettes, uncomplicated; Z71.6 Tobacco abuse counseling; Z91.51 Personal history of suicidal behavior; Z20.822 Contact with and (suspected) exposure to COVID-19; Z79.899 Other long term (current) drug therapy
CPT/HCPCS: 36415; 71045; 80048; 80053; 80061; 80076; 80307; 81003; 82077; 82607; 82746; 83036; 83735; 84443; 84484; 85025; 87635; 93005; 99285